=== PATIENT | male | born 1960 | race Caucasian/White ===

== ENCOUNTER 2025-08-19 23:31 | Inpatient (IN) | payer OTHER, SELFPAY ==
[2025-08-19 17:11] VITALS: BP 147/80
[2025-08-19 17:39] LABS: Hematocrit 47.5 % (39.0-52.0); Hemoglobin 16.0 g/dL (13.0-18.0); Mean Corp Hgb Conc. 33.7 g/dL (33.0-37.0); Mean Corpuscular Volume 91.2 fL (80.0-94.0); Nucleated Red Blood Cells % 0 % (-); Platelet Count 262 10^3/uL (130-400); Red Cell Dist. Width 12.9 % (11.5-14.5)
[2025-08-19 18:04] LABS: ALT (SGPT) 38 U/L (0-50); AST (SGOT) 22 U/L (17-59); Albumin 4.8 g/dl (3.5-5.0); Alkaline Phosphatase 97 U/L (38-126); Blood Urea Nitrogen 14 mg/dl (9-20); Calcium 9.6 mg/dl (8.4-10.2); Carbon Dioxide 26 mmol/L (22-30); Chloride 100 mmol/L (98-107); Glucose 130 mg/dl (70-99); Lipase 727 U/L (23-300); Potassium 4.2 mmol/L (3.5-5.1); Sodium 138 mmol/L (135-145); Total Protein 7.6 g/dl (6.3-8.2); eGFR > 60.00
[2025-08-19 19:24] VITALS: BMI 32.6
[2025-08-19 19:27] VITALS: BP 136/84
[2025-08-19] MEDS: NSS 500 IV (19:34)
[2025-08-19 20:00] VITALS: BP 142/73
[2025-08-19 21:00] VITALS: BP 121/79
[2025-08-19 22:00] VITALS: BP 129/78
--- NOTE | 2025-08-19 22:39 | ED.GENMED ---
History of Present Illness
General
Chief Complaint: Abdominal Pain
Source: patient and spouse
Time Seen by Provider: 08/19/25 19:02
History of Present Illness
History of Present Illness:
Note:
CHIEF COMPLAINT(S)
Lower abdominal pain
HISTORY OF PRESENT ILLNESS
The patient is a 64-year-old male who presents with a complaint of lower abdominal pain that began suddenly in the afternoon the previous day. The pain has become progressively worse, described as a 'soreness.' There is no radiation to the back
noted, although the patient has a history of three bulging discs on the same side of the back. The patient reports constipation, characterized by infrequent small bowel movements, and is concerned about being 'backed up.' There is a history of
diverticulitis on the left side in the past, which required surgical intervention removing eight inches of colon. The patient is currently on insulin and Ozempic for diabetes management, with insulin recently increased to 30 units at night. He
reports that the dosage increase has not notably improved his blood glucose levels. The patient also notes a stable weight at 230-231 pounds over the last few years and mentions being advised of potential benefits from switching to Mounjaro for
diabetes control, but expresses concerns about insurance coverage.
ADDITIONAL HISTORY OBTAINED FROM SOURCES OTHER THAN THE PATIENT
The patients friend, who is a doctor, advised seeking medical evaluation for the current symptoms.
The patient�s spouse reports that he does not drink water regularly and prefers iced tea; he also has poor dietary habits.
CHRONIC MEDICAL CONDITIONS SIGNIFICANTLY AFFECTING CARE
Diabetes Mellitus
History of diverticulitis
PHYSICAL EXAM
General: Alert, no acute distress.
Skin: Warm, dry.
Head: Normocephalic, atraumatic.
Neck: Supple, trachea midline.
Eye Ears, nose, mouth and throat: Oral mucosa moist.
Cardiovascular: Normal peripheral perfusion, no edema.
Respiratory: Respirations are non-labored. No respiratory distress, clear lung ponce without rales.
Gastrointestinal : No tenderness or distension, normal bowel sounds, no hernia palpated, no pulsatile masses.
Back: Normal range of motion, normal alignment.
Musculoskeletal: Normal range of motion, normal strength.
Neurological: Alert and oriented to person, place, time, and situation, non-focal motor exam.
Psychiatric: Cooperative, appropriate mood & affect.
PLAN
Obtain a CT scan of the abdomen to evaluate for appendicitis, colitis, or other intra-abdominal pathology.
Administer IV fluids (500 mL) to address dehydration and assist in diabetes management due to high blood sugar.
Advise dietary modifications including increasing water intake and reducing iced tea consumption.
DIFFERENTIAL DIAGNOSIS
The Differential Diagnosis includes, in no particular order and is not limited to:
- Appendicitis
- Diverticulitis
- Abdominal wall strain
- Renal calculi (kidney stones)
- Constipation secondary to medication or diet
- Musculoskeletal pain related to bulging discs
- Colitis
- Gastrointestinal obstruction
- Diabetic ketoacidosis
- Hernia
Disposition:
SUMMARY OF ENCOUNTER
The 64-year-old male presented with lower abdominal pain, accompanied by concerns of a bowel obstruction or related pathology. A CT scan revealed a mass involving the cecum, extending into the appendix and proximal ascending colon, measuring 4.5 cm,
with a dilated appendix and potential small contained perforation. Blood glucose was noted at 130 mg/dL. The patient has a history of diabetes mellitus and previous diverticulitis. A surgical consultation was obtained, and the management plan
included antibiotic treatment with intravenous piperacillin and tazobactam (Zosyn).
ASSESSMENT
The patient appears to have a colonic mass with potential for bowel perforation, warranting antibiotic management and surgical evaluation.
EMERGENCY TREATMENTS ADMINISTERED
The patient was administered intravenous piperacillin and tazobactam (Zosyn).
MANAGEMENT OF THE PATIENTS CARE WAS DISCUSSED WITH
The case was discussed with Dr. Collins from surgery, who concurred with the management plan. The case was also discussed with the hospitalist.
PLAN
Proceed with antibiotic management, continue monitoring, and prepare for potential surgical intervention.
INDEPENDENT REVIEW OF LABS AND INTERPRETATION OF TESTS
- My independent review of the CBC is normal.
- My independent review of the CMP shows normal results except for mildly elevated lipase at 727 U/L.
- My independent interpretation of the CT scan shows a mass involving the cecum, extending into the appendix and proximal ascending colon, measuring 4.5 cm, with a dilated appendix and possible contained perforation.
MEDICATION RECONCILIATION
- Piperacillin and tazobactam (Zosyn) was administered intravenously.
MEDICAL DECISION MAKING
- Number and Complexity of Problems Addressed: Chronic conditions affecting care include diabetes mellitus and history of diverticulitis. Differential diagnosis includes appendicitis, diverticulitis, renal calculi (kidney stones), constipation,
musculoskeletal pain, colitis, gastrointestinal obstruction, diabetic ketoacidosis, and hernia.
- Data:
Category 1:
- Clinical information obtained from an independent historian (the patient�s friend who is a doctor and the patients spouse).
- My independent interpretation of the CT scan shows cecal mass extending to appendix and proximal ascending colon.
Category 3:
- Case discussion with Dr. Collins (surgeon) and the hospitalist regarding management.
- Risk:
- Prescription medication management was initiated with IV antibiotics.
- Consideration of Admission/Observation: Escalation of care including admission/observation was considered given the complexity and risk of the patients presenting complaint, exam findings, and/or their underlying comorbidities. However,
ultimately, the patient is safe for outpatient management with close follow-up as the work-up was reassuring, not revealing any acute life/organ-threatening processes.
DIAGNOSIS
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
- Diabetes Mellitus Type 2, insulin-dependent (ICD-10: E11.9).
Phy Exam
Physical Exam
Physical Exam:
.
Course
Orders/Labs/Results
Orders:
Orders
08/19/25 17:14
Electrocardiogram (*1) Urgent
Reason for Study: Abdominal Pain
EKG- Treatment ONCE
08/19/25 17:29
Complete Blood Count/With Diff Urgent
Comprehensive Metabolic Panel Urgent
Lipase Urgent
08/19/25 19:23
CT Abd/Pel (IV only)-DH only Urgent
Comment:
Reason For Exam: RLQ abd pain
08/19/25 19:25
0.9% Sodium Chloride 500 ml [Nss] 500 ml IV BOLUS
08/19/25 22:30
Piperacillin/Tazo 3.375 Gram [Zosyn] 3.375 gram in 50 ml IV NOW
08/19/25 23:16
Admit/Transfer Patient As Directed
Co-Sign Provider:
Level of Care: Inpatient admission
Assign to:: Medical/Surgical
Physician / Group: Joshua
Diagnosis: Cecal Mass
Reason for Hospitalization: Surgical Consult
Expected length of stay greater than two midnights?: Yes
ELOS- Estimated Length of Stay in days: 3
I certify the patient meets the requirements for IP care: Yes
PRN Pain Medication Management As Directed
May give lesser potent ordered pain med per pt: Yes
preference::
Protocol:: Medication orders for pain may be administered in a
manner that supports deferring to patient preference
when the pt is:
- Requesting an ordered lesser potent pain medication.
Least to most potent pain medications are defined
as: acetaminophen < NSAID < tramadol < opioids
(morphine, oxycodone, hydromorphone).
- Requesting a lesser dose of the same medication IF
ORDERED.
- Requesting a less intrusive route of administration
if both routes are prescribed by the provider (PO <
IV).
08/19/25 23:22
Code Status As Directed
Resuscitation Status: Full Code
08/19/25 23:25
Insulin Glargine Lantus [Lantus] 15 units Subcutaneous Insulin Syringe [Syringe-Insulin] 0 unit SC ONCE
08/20/25 01:30
0.9% Sodium Chloride 1000 ml [Nss] 1,000 ml IV 80 mls/hr
Acetaminophen [Tylenol] 650 mg PO Q4HPRN PRN
Dextrose 50%-Water [Dextrose 50% Syringe] 12.5 grams IV [id number] PRN
Glucagon [GlucaGen] 1 mg IM PRN PRN
Morphine Sulfate 2 mg IV Q4HPRN PRN
Ondansetron Injectable [Zofran] 4 mg IV Q6HPRN PRN
08/20/25 01:30
SURGICAL CONSULT Routine
Consulting Provider: Tavo Chao
Was physician already notified: Yes
Activity As Directed
Activity Level: Out of Bed-Early Mobility
With Assistance
Bedside Glucose Monitoring As Directed
Frequency: AC&HS
Additional Instructions:: Change to q6h if pt on TPN, tube feeding or not eating
Bladder Scan As Directed
Follow Bladder Retention/Intermittent Cath Algorithm?: Yes
PRN if no void in __ hours: 6
Frequency: Per Retention Algorithm
If Bladder Scan Result >: 400
then:: Straight cath
I&O [Intake/ Output] As Directed
Frequency: q12h
Straight Cath As Directed
Frequency: Per Retention Algorithm
Additional Instructions: straight cath as needed per acute urinary retention algorithm for 24 hrs
Additional Instructions: for bladder scan greater than 400 mL
Vital Signs As Directed
Frequency: Per unit guidelines
DX Deep Vein Thrombosis Video Routine
08/20/25 Breakfast
NPO
Allow oral meds: Yes
Allow clear liquids: 4hrs prior to procedure
Comment: may have unrestricted clear liquid up to 4 hrs prior to scheduled procedure
Glycohemoglobin (HgbA1c) IN AM
08/20/25 07:30
Insulin Aspart Corrective Low [Novolog Flexpen-Low Resistance] See Protocol SC AC
08/20/25 08:00
Carvedilol [Coreg] 6.25 mg PO BID
Dapagliflozin [Farxiga] 10 mg PO DAILY
Ezetimibe [Zetia] 10 mg PO DAILY
Valsartan [Diovan] 160 mg PO DAILY
08/20/25 18:00
Enoxaparin Sodium [Lovenox] 40 mg SC QPM
08/20/25 22:00
Atorvastatin [Lipitor] 80 mg PO HS
insulin glargine [Lantus U-100 Insulin] 15 unit SC HS
Abnormal Lab Results
08/19/25
17:29
Absolute Monos (auto) 0.8 H 10^3/uL
(0.1-0.6)
Monocytes % 9.7 H %
(1.7-9.3)
Glucose 130 H mg/dl
(70-99)
Lipase 727 H U/L
(23-300)
08/19/25 17:29
08/19/25 17:29
Vital Signs
Initial and Last Documented VS:
Initial Vital Signs
Temp Pulse Resp BP Pulse Ox
98.1 F 79 16 147/80 100
08/19/25 17:11 08/19/25 17:11 08/19/25 17:11 08/19/25 17:11 08/19/25 17:11
Last Documented Vital Signs
Temp Pulse Resp BP Pulse Ox
98.1 F 73 23 136/84 94
08/19/25 17:11 08/19/25 19:45 08/19/25 19:45 08/19/25 19:27 08/19/25 22:40
*Pulse Oximetry
SaO2: 94
Oxygen Mode of Delivery: Room air
Patient hypoxic: no
*Critical Care Note
Total Time (30-74mins, 75-104mins- exclusive of procedures): Not Applicable
ED Attending Note
-
Portions of this chart may have been created with voice recognition software.� Occasional wrong word or��sound alike� substitutions may have occurred due to the inherent limitations of voice recognition software.
Discharge Plan
Departure
Patient Disposition: Admit
Date of Disposition: 08/19/25
Time of Disposition: 22:39
Admit to: Med/Surg
Presentation/result/management discussed w/ accepting MD/DO: Hospitalist
Discharge Problem:
Mass of cecum, appendiceal obstruction, possible perforated appendix
Interventions
Interventions:
*General Assessment Last Done: 08/19/25 19:24
*Neglect/Abuse Screening Last Done: 08/19/25 17:11
*ED COVID-19 Vaccine History Last Done: 08/19/25 19:24
*ED Influenza Vaccine History Last Done: 08/19/25 19:24
[facility] Fall Risk Assessment Tool Last Done: 08/19/25 19:24
*Risk Screen - Suicide (C-SSRS) Last Done: 08/20/25 00:24
PV-Nwegma-Udgqiqqkho Assessment Last Done: 08/19/25 19:28
--- NOTE | 2025-08-19 22:56 | HPS.HSE ---
Addendum entered and electronically signed by Jamir Lewis DO 08/20/25 00:11:
Patient seen and examined independently. Agree with findings and plan as set forth by Paulina Escobar PA-C.
Patient is a 64y M with PMH significant for ASCVD, HTN and DM-II who presents to ED complaining of RLQ off-and-on for about one month. No N/V, fevers / chills. No noted diarrhea, black or bloody stools. Patient has a prior history of
diverticulitis, s/p partial bowel resection. Has had colonoscopy in the past - though it has been a few years.
Ass:
Cecal / Appendiceal Mass
Possible Appendiceal Perforation
ASCVD
benign Hypertension
DM-II
Plan:
Admit for further evaluaytion and treatment.
NPO, IVFs, pain control, etc.
Continue Zosyn for now given possibility of perforation.
Surgery consulted for additional recommendations.
? colonoscopy v excisional biopsy / appendectomy for further evaluation.
Continue basal insulin at decreased dose. Follow glucose and cover with SSI.
Continue ASA / CV med regimen.
Original Note:
Family Physician
-
Family Physician: Sinai Das NP
Chief Complaint
-
Abdominal Pain
History of Present Illness
Patient is a 64 y/o male past medical history of diabetes, hypertension, and hyperlipidemia who presents with abdominal pain. Patient reports intermittent episodes of right lower quadrant abdominal over the past month. He reports last night pain
was more severe than previous and is more persistent than previous episodes. He denies any nausea and vomiting. He reports some trouble with constipation but denies any diarrhea. He denies any fevers, sweats or chills.
Medical History
Past Medical History
Past Medical History: Reports Other
Additional Past Medical History:
Coronary Artery Disease s/p Stent ~ 15 years ago
Diabetes Mellitus, Type II
Essential Hypertension
Hyperlipidemia
Past Surgical History: Reports Other
Additional Past Surgical History:
Colon Resection for diverticulitis
Ventral Hernia Repair
Social History
Tobacco: Non-smoker
Alcohol: Other (Very rare)
Family History
Family History: Not pertinent
Allergies / Home Medications
Allergies reflects when Allergies were last updated in [facility].
Home Medications with original date entered in [employer] [facility]
Allergy/Medication List:
Allergies
Allergy/AdvReac Type Severity Reaction Status Date / Time
No Known Allergies Allergy Unverified 08/19/25 23:26
Home Medications
aspirin 81 mg tablet 81 mg PO DAILY 08/19/25
atorvastatin 80 mg tablet (Lipitor) 80 mg PO HS 08/19/25
carvedilol 6.25 mg tablet 6.25 mg PO BID 08/19/25
empagliflozin 25 mg tablet (Jardiance) 25 mg PO DAILY 08/19/25
ezetimibe 10 mg tablet 10 mg PO DAILY 08/19/25
glimepiride 4 mg tablet 4 mg PO BID 08/19/25
insulin glargine 100 unit/mL subcutaneous solution (Lantus U-100 Insulin) 30 unit SC HS 08/19/25
metformin 500 mg tablet 500 mg PO BID 08/19/25
semaglutide 2 mg/dose (8 mg/3 mL) subcutaneous pen injector (Ozempic) 2 mg SC QWEEK 08/19/25
valsartan 160 mg-hydrochlorothiazide 12.5 mg tablet 1 tab PO DAILY 08/19/25
Review of Systems
-
A 12 point ROS was completed and negative except as noted: Yes
Constitutional: Denies Fever
Respiratory: Denies Cough or Trouble Breathing
Cardiac: Denies Chest Pain or Palpitations
Abdomen/GI: Reports See HPI
Physical Exam
Vital Signs
Vital Signs
Temp Pulse Resp BP Pulse Ox
98.1 F 73 23 136/84 94
08/19/25 17:11 08/19/25 19:45 08/19/25 19:45 08/19/25 19:27 08/19/25 22:40
Physical Exam
General: Comfortable and Conversant
HEENT: Anicteric and Moist mucous membranes
Respiratory: Clear and Non Labored Respirations
Cardiac: S1/S2 and Regular Rhythm
GI: Soft, Normal Bowel Sounds and Tender (RLQ)
Rectal: Deferred by Provider
Musculoskeletal: No Clubbing and No Cyanosis
Skin: Warm and Dry
Neuro: Awake, Alert, Oriented and Nonfocal/grossly intact
Psych: Calm
Laboratory Results
-
08/19/25 17:29
08/19/25 17:29
Laboratory Results
Total Bilirubin 1.2 mg/dl (0.2-1.3) 08/19/25 17:
AST 22 U/L (17-59) 08/19/25 17:29
ALT 38 U/L (0-50) 08/19/25 17:29
Alkaline Phosphatase 97 U/L (38-126) 08/19/25 17:29
Lipase 727 U/L (23-300) H 08/19/25 17:29
Abd/Pelvis CT Scan:
There appears to be a mass involving the cecum and extending into the appendiceal orifice and proximal appendix. This measures up to 4.5 cm. There is associated dilation of the appendix measuring up to 1.8 cm which may be secondary to obstruction.
There is a small outpouching along the mid appendix for which a small contained perforation is possible. Findings are concerning for malignancy and may represent an appendiceal mucinous neoplasm or possible adenocarcinoma. Recommend colonoscopy for
further evaluation.
Data Reviewed
-
CT Scan: Report Reviewed by me
Lab Data: Labs Reviewed by me
Impression/Plan
-
Cecal Mass with associated appendiceal obstruction and possible perforation
-Consult General Surgery
-NPO after midnight for possible OR tomorrow
Coronary Artery Disease s/p Stent ~ 15 years ago
-Continue aspirin
Diabetes Mellitus, Type II
-Hold Glimepiride and Metformin
-Half usual dose of Lantus while NPO
-Continue Jardiance
Essential Hypertension
-Continue carvedilol and valsartan
-Hold HCTZ
Hyperlipidemia
-Continue atorvastatin and ezetimibe
DVT proph: Lovenox
Code Status: Full Code
[2025-08-19 23:00] VITALS: BP 122/81
[2025-08-19 23:31] VITALS: BMI 32.6
[2025-08-19] MEDS: ZOSYN 50 IV (23:58)
[2025-08-20] VITALS (7 sets, daily range): BP systolic 120–146; BP diastolic 70–105; BMI 34.2
[2025-08-20] MEDS: LANTUS 0.15 UNITS SC (01:33)
[2025-08-20] MEDS: NSS 1000 IV ×2 (01:35→17:37)
[2025-08-20] MEDS: ZOSYN 50 IV ×4 (06:05→23:57)
[2025-08-20] MEDS: ASPIR LOW (ENTERIC COATED) 81 MG PO (08:23)
[2025-08-20] MEDS: COREG 6.25 MG PO ×2 (08:23→19:46)
[2025-08-20] MEDS: DIOVAN 160 MG PO (08:24)
[2025-08-20] MEDS: NOVOLOG FLEXPEN-LOW RESISTANCE SC ×2 (09:01→17:32)
[2025-08-20] MEDS: FARXIGA 10 MG PO (09:02)
[2025-08-20] MEDS: ZETIA 10 MG PO (09:02)
[2025-08-20 09:05] LABS: Glucose - Point of Care 106 mg/dl (70-99)
[2025-08-20 09:18] LABS: Glycohemoglobin (HgbA1c) 8.6 % (4.0-5.9)
--- NOTE | 2025-08-20 09:57 | CON.GI ---
Consultation
-
Date/Time Consultation Requested: 08/20/25 8:42am
Date/Time Consultation Performed: 08/20/25 9:57am
Requesting Provider: Tavo Chao
Performing Provider: Davian Cade
Reason for Consultation: Colon mass
Medical History
Chief Complaint / HPI
Chief Complaint: Colon mass
History of Present Illness:
64yo male presents with RLQ abd pain over last several weeks. BMs smaller. Denies rectal bleeding. Had pain earlier in the week that was more severe but subsided. Denies f/c, n/v. Had colonoscopy in 2004- diverticulosis and hemorrhoids. None
since then.
Past Medical History
Past Medical History: CAD, HTN and NIDDM
Past Surgical History: Bowel Resection (colon resection for diverticulitis) and Other (hernia repair)
Social History
Tobacco: Non-Smoker
Alcohol: Occasional
Family History
Family History: Cancer (Mother- CRC)
Allergies / Home Medications
Allergy/AdvReac Type Severity Reaction Status Date / Time
No Known Allergies Allergy Unverified 08/19/25 23:26
�Medication �Instructions �Recorded
aspirin 81 mg tablet 81 mg PO DAILY Blood Clot 08/19/25
Prevention/Tx
atorvastatin 80 mg tablet (Lipitor) 80 mg PO HS High Cholesterol 08/19/25
carvedilol 6.25 mg tablet 6.25 mg PO BID 08/19/25
empagliflozin 25 mg tablet 25 mg PO DAILY Diabetes 08/19/25
(Jardiance)
ezetimibe 10 mg tablet 10 mg PO DAILY High Cholesterol 08/19/25
glimepiride 4 mg tablet 4 mg PO BID Diabetes 08/19/25
insulin glargine 100 unit/mL 30 unit SC HS 08/19/25
subcutaneous solution (Lantus
U-100 Insulin)
metformin 500 mg tablet 500 mg PO BID Diabetes 08/19/25
semaglutide 2 mg/dose (8 mg/3 mL) 2 mg SC GILLIS Diabetes 08/19/25
subcutaneous pen injector (Ozempic)
valsartan 160 1 tab PO DAILY Heart 08/19/25
mg-hydrochlorothiazide 12.5 mg Disease/Condition
tablet
calcium polycarbophil 625 mg 1,250 mg PO DAILY Constipation 08/20/25
tablet (FiberCon)
cholecalciferol (vitamin D3) 25 25 mcg PO DAILY Supplement 08/20/25
mcg (1,000 unit) tablet (Vitamin
D3)
Review of Systems
-
All other systems: A 12 pt ROS was Negative except as stated above in HPI
Vital Signs
Temp Pulse Resp BP Pulse Ox
98.1 F 76 20 136/74 99
08/20/25 08:00 08/20/25 08:24 08/20/25 08:00 08/20/25 08:24 08/20/25 08:00
Physical Exam
Exam
General: Well Developed, Well Nourished and No Apparent Distress
HEENT: Normocephalic and Atraumatic
Respiratory: Non Labored Respirations
GI: Soft, Non Tender and Non Distended
Results
WBC 8.1 10^3/uL (4.8-10.8) 08/19/25 17:
Hgb 16.0 g/dL (13.0-18.0) 08/19/25 17:
Hct 47.5 % (39.0-52.0) 08/19/25 17:
MCV 91.2 fL (80.0-94.0) 08/19/25 17:
Plt Count 262 10^3/uL (130-400) 08/19/25 17:29
Absolute Neuts (auto) 5.3 10^3/uL (1.4-6.5) 08/19/25 17:
Sodium 138 mmol/L (135-145) 08/19/25 17:
Potassium 4.2 mmol/L (3.5-5.1) 08/19/25 17:
Chloride 100 mmol/L (98-107) 08/19/25:
Carbon Dioxide 26 mmol/L (22-30) 08/19/25:
BUN 14 mg/dl (9-20) 08/19/25:
Creatinine 0.9 mg/dL (0.7-1.3) 08/19/25
Calcium 9.6 mg/dl (8.4-10.2) 08/19/25
Total Bilirubin 1.2 mg/dl (0.2-1.3) 08/19/25
AST 22 U/L (17-59) 08/19/25
ALT 38 U/L (0-50) 08/19/25
Alkaline Phosphatase 97 U/L (38-126) 08/19/25
Lipase 727 U/L (23-300) H 08/19/25
Diagnostic Image Results:
CT abd/pelvis- mass involving cecum extending into appendiceal orifice and proximal appendix 4.5cm. Appendix dilated 1.8cm with small outpouching, contained perforation is possible.
Prior GI Procedures:
EGD:
Colonoscopy:
Assessment / Plan
-
Summary: 64yo male presents with several weeks RLQ pain and small BMs. Last colonoscopy in 2004- diverticulosis and hemorrhoids. CT shows 4.5cm cecal mass extending into appendix with small outpouching mid appendix, contained perforation possible.
Abd exam is benign, normal WBC.
Impression:
Cecal mass
RLQ pain
FH CRC
Recommendtaions:
Discussed with Surgery.
Will prep for colonoscopy for diagnosis of cecal cancer vs appendiceal mucinous tumor and to exclude synchronous lesions prior to surgery
Doubt perforated appendix given benign exam, normal WBC, no associated findings of inflammation around the appendix.
-
-
Thank you for consultation and allowing me to participate in the patient's care. Please call the heating and air conditioning mechanic GI physician during the after hours with any questions or concerns.
--- NOTE | 2025-08-20 10:53 | CON.GS ---
Consultation
-
Date/Time Consultation Performed: 08/20/2025 8:30 AM
Performing Provider: Jeremie
Reason for Consultation: Cecal mass
Medical History
-
Chief Complaint: Right lower quadrant abdominal pain
History of Present Illness:
Patient is a 64-year-old male who was in his usual baseline state of health until over the past 4 to 6 weeks or potentially longer he has been noticing a daily discomfort in the right lower quadrant. It is a mild ache that is worse at the end of
the day and with physical activity. Due to the persistence of his symptoms he presented for emergency department evaluation yesterday evening as he was on his feet all day at work and fairly uncomfortable by the end of the day.
No associated nausea, no vomiting. Appetite has been well and stable. He reports a history of chronic irregular bowel movements which tends to be constipated with occasional loose stool without any acute changes. No melena, no hematochezia.
States that his mother from colon cancer. His last colonoscopy is 15+ years ago. Reviewing medical records it appears as though this was in [address] Patel which showed diverticulosis and no polyps with 5-year surveillance
colonoscopy recommended.
Past abdominal surgical history notable for sigmoid colon resection 09/2005 for recurrent sigmoid diverticulitis and subsequent ventral hernia repair with mesh 09/06/2009. Patient also reports remote history of umbilical herniorrhaphy.
Past Medical History
Past Medical History: Other (CAD with remote history of coronary stent, type 2 diabetes, hypertension, hyperlipidemia)
Past Surgical History: Cardiac (Stent) and Other (Umbilical herniorrhaphy, ventral hernia repair, open sigmoidectomy)
Social History
Tobacco: Non-Smoker
Personal:
Living: With Family
Employment: Employed
Family History
Family History: Cancer (Mother passed from advanced colon cancer)
Allergies / Home Medications
Allergy/AdvReac Type Severity Reaction Status Date / Time
No Known Allergies Allergy Unverified 08/19/25 23:26
�Medication �Instructions �Recorded �Confirmed �Type
aspirin 81 mg tablet 81 mg PO DAILY Blood Clot 08/19/25 08/20/25 History
Prevention/Tx
atorvastatin 80 mg tablet (Lipitor) 80 mg PO HS High Cholesterol 08/19/25 08/20/25 History
carvedilol 6.25 mg tablet 6.25 mg PO BID 08/19/25 08/20/25 History
empagliflozin 25 mg tablet 25 mg PO DAILY Diabetes 08/19/25 08/20/25 History
(Jardiance)
ezetimibe 10 mg tablet 10 mg PO DAILY High Cholesterol 08/19/25 08/20/25 History
glimepiride 4 mg tablet 4 mg PO BID Diabetes 08/19/25 08/20/25 History
insulin glargine 100 unit/mL 30 unit SC HS 08/19/25 08/20/25 History
subcutaneous solution (Lantus
U-100 Insulin)
metformin 500 mg tablet 500 mg PO BID Diabetes 08/19/25 08/20/25 History
semaglutide 2 mg/dose (8 mg/3 mL) 2 mg SC GILLIS Diabetes 08/19/25 08/20/25 History
subcutaneous pen injector (Ozempic)
valsartan 160 1 tab PO DAILY Heart 08/19/25 08/20/25 History
mg-hydrochlorothiazide 12.5 mg Disease/Condition
tablet
calcium polycarbophil 625 mg 1,250 mg PO DAILY Constipation 08/20/25 08/20/25 History
tablet (FiberCon)
cholecalciferol (vitamin D3) 25 25 mcg PO DAILY Supplement 08/20/25 08/20/25 History
mcg (1,000 unit) tablet (Vitamin
D3)
Review of Systems
-
A 10 point review of systems was completed, and was negative except as per HPI.
Physical Exam
Vital Signs
Temp Pulse Resp BP Pulse Ox
98.1 F 76 20 136/74 99
08/20/25 08:00 08/20/25 08:24 08/20/25 08:00 08/20/25 08:24 08/20/25 08:00
08/19/25 08/20/25 08/21/25
06:59 06:59 06:59
Actual Weight 100 kg
Body Mass Index (BMI) 32.6
Lab Results
08/19/25 17:29
08/19/25 17:
WBC 8.1 10^3/uL (4.8-10.8) 08/19/25 17:
Hgb 16.0 g/dL (13.0-18.0) 08/19/25
Hct 47.5 % (39.0-52.0) 08/19/25
Plt Count 262 10^3/uL (130-400) 08/19/25
Abs Immat Gran (auto) 0.0 10^3/uL (0-0.05) 08/19/25
Neutrophils % 65.6 % (42.2-75.2) 08/19/25:
Physical Exam
General: Well Developed, Well Nourished, No Apparent Distress and Comfortable
HEENT: Normocephalic, Anicteric and Moist Mucous Membranes
Respiratory: Non Labored Respirations
Cardiac: Regular Rhythm
GI: Soft, Non Distended, Tender (Mild localizing tenderness to the right lower quadrant. No rebound, no rigidity, no guarding), Incisions (Midline laparotomy surgical scars well-healed.) and Obese
Skin: Warm
Neuro: AO x 3
Psych: Calm
Data Reviewed
-
CT Scan: Image Personally Visualized and interpreted, Report Reviewed by me, Discussed with Physician, Discussed with Patient and Discussed with Family
Labs: Labs Reviewed by me, Discussed with Physician, Discussed with Patient and Discussed with Family
Assessment / Plan
-
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 No clinical signs of perforation or impending perforation or active infectious process.
CT imaging personally reviewed and interpreted as well as radiologist report. Soft tissue mass affecting the cecum with appendiceal dilation, fluid-filled. No abscess, no phlegmon, no significant inflammatory changes. No obstruction of the
ileocecal valve or proximal dilation of the ileum.
Reviewing medical records it appears his last colonoscopy was 2004. Family history of colon cancer in his mother.
Plan:
Discussed with patient and his via conference phone call CT imaging findings concerning for a mass in the cecum causing chronic appendiceal obstruction but no perforation. We discussed workup to initially proceed with colonoscopy to rule out
any synchronous lesions as well as evaluate the area of concern within the cecum. We subsequently discussed the anticipated need for a formal right hemicolectomy for definitive surgical management. Timing pending completion of colonoscopy and
findings and subsequent workup but may expedite to occur during this hospitalization.
Tentatively planned after discussions with Dr. Cade/KATARZYNA for bowel prep today and colonoscopy tomorrow 08/21/2025. If patient agreeable to proceed could be added onto the OR schedule with myself for 08/24/2025 tentatively, assuming stability
and if patient prefers surgery could potentially be deferred until shortly after the holiday as well.
Will follow
--- NOTE | 2025-08-20 11:15 | W.PN.HOSP.TC ---
Today's Communication/Plan
-
see A/P
Assessment / Plan
Assessment / Plan
HPI: 64 y/o male past medical history of diabetes, hypertension, hyperlipidemia; p/w intermittent right lower quadrant abdominal pain over the past month. Due to increased severity and becoming more persistent in nature, he presented to the ED.
He denies any nausea and vomiting. He reports some trouble with constipation but denies any diarrhea. He denies any fevers, sweats or chills.
CT AP:
There appears to be a mass involving the cecum and extending into the appendiceal orifice and proximal appendix. This measures up to 4.5 cm. There is associated dilation of the appendix measuring up to 1.8 cm which may be secondary to obstruction.
There is a small outpouching along the mid appendix for which a small contained perforation is possible. Findings are concerning for malignancy and may represent an appendiceal mucinous neoplasm or possible adenocarcinoma. Recommend colonoscopy for
further evaluation.
Moderate fat-containing right inguinal hernia.
Cholelithiasis.
A/P:
# Cecal Mass with associated appendiceal obstruction, ruled out perforation per GS
General Surgery on board , recc first C scope with GI, followed by formal right hemicolectomy for definitive surgical management.
Plan for C scope tomorrow 08/21/2025, and tentative OR Sunday08/24/2025
Pt is medically optimized for surgery. Benefit of procedure outweighs risk.
# Coronary Artery Disease s/p Stent ~ 15 years ago
Continue aspirin
# Diabetes Mellitus, Type II
Hold Glimepiride and Metformin
Half usual dose of Lantus (at 15 units HS) while NPO
Continue Jardiance
# Essential Hypertension
Continue carvedilol and valsartan
Hold HCTZ
# Hyperlipidemia
Continue atorvastatin and ezetimibe
DVT proph: Lovenox
Code Status: Full Code
Anticipated Discharge: > 48 hours
Subjective/Interval History
-
Date of Service: August 20, 2025
Objective Data
-
Vital Signs:
Vital Signs
Temp Pulse Resp BP Pulse Ox
36.7 C 76 20 136/74 99
08/20/25 08:00 08/20/25 08:24 08/20/25 08:00 08/20/25 08:24 08/20/25 08:00
Review of Systems
-
History Source: Patient
All other systems: Reviewed and negative
Abdomen/GI: Reports Abdominal Pain (RLQ pain with deep palpation)
Physical Exam
-
General: Well Developed, Well Nourished, No Apparent Distress, Comfortable, Conversant and Obese; Negative Respiratory Distress
HEENT: Normocephalic, Atraumatic, Nose Appears Normal and Ears Appear Normal; Negative Oxygen
Respiratory: Clear to Auscultation and Non Labored Respirations; Negative Accessory Resp Muscle Use
Cardiac: Regular Rhythm and S1/S2
GI: Soft, Nondistended and Normal Bowel Sounds
Skin: Warm and Dry
Neuro: Awake, Alert, Oriented and AO x 3
Psych: Calm and Intact Judgement/Insight
Data Reviewed
-
CT Scan: Report Reviewed by me
Labs: Labs Reviewed by me
--- NOTE | 2025-08-20 11:55 | EDCM ---
Reviewed chart and met with pt bedside in ED. Lives with his in ranch style home, [address].
Independent in ADLs, personal care and ambulation at baseline. NO assistive devices. Has glucometer.
PMH includes DM , diverticulitis and CAD.
Confirms prescription coverage.
No hx VN or SNF
PCP: [facility]
Pharmacy: [facility]
Anticipate discharge home, CM will continue to follow for all discharge planning needs.
[2025-08-20 13:53] LABS: Glucose - Point of Care 180 mg/dl (70-99)
[2025-08-20 14:01] LABS: CEA 1.52 ng/ml
[2025-08-20] MEDS: NOVOLOG FLEXPEN-LOW RESISTANCE 1 UNITS SC (14:12)
[2025-08-20 17:38] LABS: Glucose - Point of Care 134 mg/dl (70-99)
[2025-08-20] MEDS: NULYTELY SOLUTION 4 LITERS PO (17:44)
[2025-08-20] MEDS: LOVENOX 40 MG SC (18:28)
[2025-08-20 21:18] LABS: Glucose - Point of Care 83 mg/dl (70-99)
[2025-08-20] MEDS: LIPITOR 80 MG PO (21:39)
--- NOTE | 2025-08-20 21:45 | PTCARENOTE ---
2130 glucose 83, contacted [employer] [facility] regarding lantus order d/t pt being NPO except clear liquids. Order to hold lantus for tonight per [employer]
[2025-08-21] VITALS (8 sets, daily range): BP systolic 18–150; BP diastolic 68–87
[2025-08-21 00:13] LABS: Glucose - Point of Care 77 mg/dl (70-99)
[2025-08-21] MEDS: NSS 1000 IV (05:42)
[2025-08-21] MEDS: ZOSYN 50 IV (05:42)
[2025-08-21 06:14] LABS: Glucose - Point of Care 79 mg/dl (70-99)
[2025-08-21 07:39] LABS: Hematocrit 40.7 % (39.0-52.0); Hemoglobin 13.6 g/dL (13.0-18.0); Mean Corp Hgb Conc. 33.4 g/dL (33.0-37.0); Mean Corpuscular Volume 91.9 fL (80.0-94.0); Platelet Count 220 10^3/uL (130-400); Red Cell Dist. Width 12.9 % (11.5-14.5)
[2025-08-21] MEDS: ZETIA 10 MG PO (08:13)
[2025-08-21] MEDS: FARXIGA 10 MG PO (08:13)
[2025-08-21] MEDS: DIOVAN 160 MG PO (08:13)
[2025-08-21] MEDS: COREG 6.25 MG PO ×2 (08:13→21:42)
[2025-08-21] MEDS: ASPIR LOW (ENTERIC COATED) 81 MG PO (08:13)
[2025-08-21 08:25] LABS: Blood Urea Nitrogen 9 mg/dl (9-20); Calcium 8.4 mg/dl (8.4-10.2); Carbon Dioxide 24 mmol/L (22-30); Chloride 107 mmol/L (98-107); Estimated Creatinine Clearance 113 ml/min; Glucose 74 mg/dl (70-99); Potassium 4.0 mmol/L (3.5-5.1); Sodium 137 mmol/L (135-145); eGFR > 60.00
[2025-08-21 08:38] LABS: Glucose - Point of Care 93 mg/dl (70-99)
[2025-08-21 10:16] LABS: Glucose - Point of Care 80 mg/dl (70-99)
--- NOTE | 2025-08-21 10:40 | W.PN.HOSP.TC ---
Today's Communication/Plan
-
see AP
Assessment / Plan
Assessment / Plan
HPI: 64 y/o male past medical history of diabetes, hypertension, hyperlipidemia; p/w intermittent right lower quadrant abdominal pain over the past month. Due to increased severity and becoming more persistent in nature, he presented to the ED.
He denies any nausea and vomiting. He reports some trouble with constipation but denies any diarrhea. He denies any fevers, sweats or chills.
CT AP:
There appears to be a mass involving the cecum and extending into the appendiceal orifice and proximal appendix. This measures up to 4.5 cm. There is associated dilation of the appendix measuring up to 1.8 cm which may be secondary to obstruction.
There is a small outpouching along the mid appendix for which a small contained perforation is possible. Findings are concerning for malignancy and may represent an appendiceal mucinous neoplasm or possible adenocarcinoma. Recommend colonoscopy for
further evaluation.
Moderate fat-containing right inguinal hernia.
Cholelithiasis.
A/P:
# Cecal Mass with associated appendiceal obstruction, ruled out perforation per GS
s/p C scope 08/21, noted Large, villous, mucous-capped mass occupying the entire cecum, s/p biopsies. Also polyps throughout the colon, resected
Follow path report
GS on board, timing of definitive surgical management/ right hemicolectomy TBD
Cont clears for now
# Coronary Artery Disease s/p Stent ~ 15 years ago
Continue aspirin
# Diabetes Mellitus, Type II
Hold Glimepiride and Metformin
Cont decreased dose of Lantus (adjust to 5 units HS, [employer]ONSIBILITY 30 units HS)
Continue Jardiance
# Essential Hypertension
Continue carvedilol and valsartan with hold parameter
Hold HCTZ
# Hyperlipidemia
Continue atorvastatin and ezetimibe
DVT proph: Lovenox
Code Status: Full Code
DW GI
DW GS
DW at bedside
Anticipated Discharge: > 48 hours
Subjective/Interval History
-
Date of Service: August 21, 2025
Objective Data
-
Labs:
Laboratory Results
08/21/25
07:03
WBC 6.3
Hgb 13.6
Hct 40.7
Plt Count 220
Sodium 137
Potassium 4.0
Chloride 107
Carbon Dioxide 24
BUN 9
Creatinine 0.8
Glucose 74
Calcium 8.4
Vital Signs:
Vital Signs
Temp Pulse Resp BP Pulse Ox
36.6 C 65 20 130/83 96
08/21/25 10:25 08/21/25 10:25 08/21/25 10:25 08/21/25 10:25 08/21/25 10:25
I&O
08/20/25 08/21/25 08/22/25
06:59 06:59 06:59
Intake Total 2420 / 2420
Balance 2420 / 2420
Review of Systems
-
History Source: Patient
All other systems: Reviewed and negative
Abdomen/GI: Reports Abdominal Pain (mild RLQ pain with deep palpation)
Physical Exam
-
General: Well Developed, Well Nourished, No Apparent Distress, Comfortable, Conversant and Obese (BMI 34); Negative Respiratory Distress
HEENT: Normocephalic, Atraumatic, Nose Appears Normal and Ears Appear Normal; Negative Oxygen
Respiratory: Clear to Auscultation and Non Labored Respirations; Negative Accessory Resp Muscle Use
Cardiac: Regular Rhythm and S1/S2
GI: Soft, Nondistended and Normal Bowel Sounds
Skin: Warm and Dry
Neuro: Awake, Alert, Oriented and AO x 3
Psych: Calm and Intact Judgement/Insight
Data Reviewed
-
CT Scan: Report Reviewed by me and Discussed with Patient
Labs: Labs Reviewed by me
--- NOTE | 2025-08-21 11:43 | W.PN.GS2 ---
Addendum entered and electronically signed by Tavo Chao MD 08/21/25 16:31:
Patient seen and examined with surgical [employer]. Agree with documented progress note with additions noted here. This is a delayed entry patient was seen and evaluated earlier today.
at bedside. Patient comfortably sitting in chair at bedside after returning from colonoscopy. No significant abdominal pain.
We reviewed colonoscopy results identifying a large frond villous nonobstructing mass in the cecum obscuring the appendiceal orifice.
Discussed indications for definitive surgical resection.
We reviewed the anticipated operative procedure of a laparoscopic assisted right hemicolectomy and typical postoperative recovery/care.
Patient would like to proceed with definitive resection at his index hospitalization rather than discharge with outpatient follow-up.
Staging CT chest ordered -reviewed negative for any suspicious pulmonary lesions
CEA normal
Maintain liquid diet through the weekend and he has been added onto the OR schedule for 08/24/2025
Will follow
Original Note:
Today's Communication / Plan
-
OR sunday
Assessment / Plan
-
64 yo male with h/o sigmoid colon resection 09/2005 for recurrent sigmoid diverticulitis and subsequent ventral hernia repair with mesh 09/06/2009 presenting with RLQ discomfort over the past month with cecal mass with appendiceal dilation found on CT.
Colonoscopy today with a frond-like/villous non-obstructing large, mucous-capped mass was in the cecum, appendiceal orifice unable to be visualized d/t mass location. Biopsies sent and pending but malignancy is suspected. No evidence of local spread
on CT. CEA 1.52 (wnl).
Surgical options discussed with the patient and his spouse today; will plan for right hemicolectomy on Sunday
Plan:
OK for full liquid diet, will not advance beyond this to avoid patient needing a second bowel prep. Clears Sunday and NPO after MN Sunday.
No further ABX needed
Will check CT chest for staging
D/W primary hospitalist on nursing unit
Subjective Data
-
Date of Service: August 21, 2025
Pt seen and examined at bedside with Dr. Chao. Denies n/v. Denies pain. Pt's spouse at bedside.
Objective Data
-
Intake and Output
08/20/25 08/21/25 08/22/25
06:59 06:59 06:59
Intake Total 2420 / 2420
Balance 2420 / 2420
Intake:
Oral fluids 1680 / 1680
IV fluids (Total) 640 / 640
IV piggybacks 100 / 100
Other:
Number of approximated MODERATE 6
amounts of urine
Vital Signs
Temp Pulse Resp BP Pulse Ox
97.9 F 65 20 130/83 96
08/21/25 10:25 08/21/25 10:25 08/21/25 10:25 08/21/25 10:25 08/21/25 10:25
Lab Results
08/21/25 07:03
08/21/25 07:03
Calcium 8.4 mg/dl (8.4-10.2) 08/21/25 07:03
Total Bilirubin 1.2 mg/dl (0.2-1.3) 08/19/25 17:29
AST 22 U/L (17-59) 08/19/25 17:29
ALT 38 U/L (0-50) 08/19/25 17:29
Alkaline Phosphatase 97 U/L (38-126) 08/19/25 17:29
Total Protein 7.6 g/dl (6.3-8.2) 08/19/25 17:29
Albumin 4.8 g/dl (3.5-5.0) 08/19/25 17:29
Physical Exam
-
NAD
ABD soft, nt, nd
[2025-08-21 12:46] LABS: Glucose - Point of Care 190 mg/dl (70-99)
[2025-08-21] MEDS: NOVOLOG FLEXPEN-LOW RESISTANCE 1 UNITS SC (12:52)
[2025-08-21] MEDS: NSS IV (15:48)
[2025-08-21 17:31] LABS: Glucose - Point of Care 110 mg/dl (70-99)
[2025-08-21] MEDS: NOVOLOG FLEXPEN-LOW RESISTANCE SC (17:41)
[2025-08-21] MEDS: LOVENOX 40 MG SC (18:38)
[2025-08-21 21:33] LABS: Glucose - Point of Care 109 mg/dl (70-99)
[2025-08-21] MEDS: LANTUS 0.05 UNITS SC (21:37)
[2025-08-21] MEDS: LIPITOR 80 MG PO (21:38)
[2025-08-22] MEDS: NSS 1000 IV (01:24)
[2025-08-22] MEDS: ZETIA 10 MG PO (07:40)
[2025-08-22] MEDS: COREG 6.25 MG PO ×2 (07:40→21:23)
[2025-08-22] MEDS: DIOVAN 160 MG PO (07:40)
[2025-08-22] MEDS: ASPIR LOW (ENTERIC COATED) 81 MG PO (07:40)
--- NOTE | 2025-08-22 07:57 | W.PN.HOSP.TC ---
Today's Communication/Plan
-
Stable
See plan
Assessment / Plan
Assessment / Plan
Physical Exam
General: Well Developed, Well Nourished, No Apparent Distress, Comfortable, Conversant and Obese (BMI 34)
HEENT: Normocephalic, Atraumatic
Respiratory: Clear to Auscultation Bilaterally
Cardiac: Regular Rhythm and S1/S2
GI: Soft, Nondistended and Normal Bowel Sounds
Skin: Warm and Dry
Neuro: Awake, Alert, Oriented and AO x 3
Psych: Calm and Intact Judgement/Insight
Assessment/Plan
HPI: 64 y/o male past medical history of diabetes, hypertension, hyperlipidemia; p/w intermittent right lower quadrant abdominal pain over the past month. Due to increased severity and becoming more persistent in nature, he presented to the ED.
He denies any nausea and vomiting. He reports some trouble with constipation but denies any diarrhea. He denies any fevers, sweats or chills.
CT AP:
There appears to be a mass involving the cecum and extending into the appendiceal orifice and proximal appendix. This measures up to 4.5 cm. There is associated dilation of the appendix measuring up to 1.8 cm which may be secondary to obstruction.
There is a small outpouching along the mid appendix for which a small contained perforation is possible. Findings are concerning for malignancy and may represent an appendiceal mucinous neoplasm or possible adenocarcinoma. Recommend colonoscopy for
further evaluation.
Moderate fat-containing right inguinal hernia.
Cholelithiasis.
# Cecal Mass with associated appendiceal obstruction, ruled out perforation per GS
s/p C scope 08/21, noted Large, villous, mucous-capped mass occupying the entire cecum, s/p biopsies. Also polyps throughout the colon, resected
Follow path report
GS on board, timing of definitive surgical management/ right hemicolectomy TBD
Cont Full Liquids for now, but Clear Liquids diet on 08/23/25, and NPO after midnight for surgery on 08/24/25
�
# Coronary Artery Disease s/p Stent ~ 15 years ago
Continue aspirin
# Diabetes Mellitus, Type II
Hold Glimepiride and Metformin
Cont decreased dose of Lantus -- adjusted to Lantus 5 units HS ([employer], patient was on Lantus 30 units HS)
Continue Jardiance
# Essential Hypertension
Continue carvedilol and valsartan with hold parameter
Hold HCTZ
# Hyperlipidemia
Continue atorvastatin and ezetimibe
DVT proph: Lovenox
Code Status: Full Code
Anticipated Discharge: > 48 hours
Subjective/Interval History
-
Date of Service: August 22, 2025
Patient was seen and examined. He denied any new symptoms or complaints.
Objective Data
-
Labs:
Laboratory Results
08/22/25
06:39
Sodium Pending
Potassium Pending
Chloride Pending
Carbon Dioxide Pending
BUN Pending
Creatinine Pending
Glucose Pending
Calcium Pending
Vital Signs:
Vital Signs
Temp Pulse Resp BP Pulse Ox
98.0 F 62 16 136/68 95
08/21/25 23:00 08/21/25 23:00 08/21/25 23:00 08/21/25 23:00 08/21/25 23:00
I&O
08/21/25 08/22/25 08/23/25
06:59 06:59 06:59
Intake Total 2420 / 2420 840 / 840
Balance 2420 / 2420 840 / 840
[2025-08-22 08:20] LABS: Glucose - Point of Care 98 mg/dl (70-99)
[2025-08-22] MEDS: NOVOLOG FLEXPEN-LOW RESISTANCE SC ×3 (08:32→16:57)
[2025-08-22 08:37] VITALS: BP 133/72
--- NOTE | 2025-08-22 09:21 | W.PN.GS2 ---
Today's Communication / Plan
-
OR sunday
Assessment / Plan
-
64 yo male with h/o sigmoid colon resection 09/2005 for recurrent sigmoid diverticulitis and subsequent ventral hernia repair with mesh 09/06/2009 presenting with RLQ discomfort over the past month with cecal mass with appendiceal dilation found on CT.
Colonoscopy 08/21 with a frond-like/villous non-obstructing large, mucous-capped mass was in the cecum, appendiceal orifice unable to be visualized d/t mass location. Biopsies sent and pending but malignancy is suspected. No evidence of local spread
on C abd/pelvis/chest. CEA 1.52 (wnl).
AFVSS
Plan:
OK for full liquid diet, will not advance beyond this to avoid patient needing a second bowel prep. Clears Sunday and NPO after MN Sunday.
OR sunday for right hemicolectomy
Preop labs in AM
c/w VTE ppx with lovenox
Subjective Data
-
Date of Service: August 22, 2025
Pt seen and examined at bedside. Denies pain. tolerating liquids. No n/v.
Objective Data
-
Intake and Output
08/21/25 08/22/25 08/23/25
06:59 06:59 06:59
Intake Total 2420 / 2420 840 / 840
Balance 2420 / 2420 840 / 840
Intake:
Oral fluids 1680 / 1680 840 / 840
IV fluids (Total) 640 / 640
IV piggybacks 100 / 100
Other:
Number of approximated MODERATE 6 5
amounts of urine
Vital Signs
Temp Pulse Resp BP Pulse Ox
98.3 F 65 20 133/72 95
08/22/25 08:37 08/22/25 08:37 08/22/25 08:37 08/22/25 08:37 08/22/25 08:37
Lab Results
08/21/25 07:03
Calcium 8.4 mg/dl (8.4-10.2) 08/21/25 07:03
Total Bilirubin 1.2 mg/dl (0.2-1.3) 08/19/25 17:29
AST 22 U/L (17-59) 08/19/25 17:
ALT 38 U/L (0-50) 08/19/25 17:29
Alkaline Phosphatase 97 U/L (38-126) 08/19/25 17:29
Total Protein 7.6 g/dl (6.3-8.2) 08/19/25 17:29
Albumin 4.8 g/dl (3.5-5.0) 08/19/25 17:29
Physical Exam
-
NAD
Mild tenderness to RLQ, ND
[2025-08-22 10:11] LABS: Blood Urea Nitrogen 7 mg/dl (9-20); Calcium 8.7 mg/dl (8.4-10.2); Carbon Dioxide 24 mmol/L (22-30); Chloride 107 mmol/L (98-107); Estimated Creatinine Clearance 111 ml/min; Glucose 88 mg/dl (70-99); Potassium 4.2 mmol/L (3.5-5.1); Sodium 139 mmol/L (135-145); eGFR > 60.00
[2025-08-22 12:43] LABS: Glucose - Point of Care 129 mg/dl (70-99)
[2025-08-22 16:47] VITALS: BP 146/81
[2025-08-22 16:56] LABS: Glucose - Point of Care 115 mg/dl (70-99)
--- NOTE | 2025-08-22 17:04 | CM ---
Patient chart reviewed
OR sunday for right hemicolectomy
PLAN: OR Sunday, CM to follow for discharge planning needs post-op
[2025-08-22] MEDS: LOVENOX 40 MG SC (18:34)
[2025-08-22 21:02] LABS: Glucose - Point of Care 179 mg/dl (70-99)
[2025-08-22] MEDS: LIPITOR 80 MG PO (21:22)
[2025-08-22] MEDS: LANTUS 0.05 UNITS SC (21:23)
[2025-08-22 23:00] VITALS: BP 129/76
[2025-08-23 06:56] LABS: INR 1.04; PT 13.7 Sec (11.4-14.6)
[2025-08-23 07:00] VITALS: BP 142/74
[2025-08-23 07:00] LABS: Hematocrit 42.7 % (39.0-52.0); Hemoglobin 14.1 g/dL (13.0-18.0); Mean Corp Hgb Conc. 33.0 g/dL (33.0-37.0); Mean Corpuscular Volume 89.5 fL (80.0-94.0); Platelet Count 241 10^3/uL (130-400); Red Cell Dist. Width 12.8 % (11.5-14.5)
[2025-08-23 07:14] LABS: APTT 32.6 Sec (23.4-35.0)
[2025-08-23 07:39] LABS: Blood Urea Nitrogen 7 mg/dl (9-20); Calcium 8.9 mg/dl (8.4-10.2); Carbon Dioxide 25 mmol/L (22-30); Chloride 107 mmol/L (98-107); Estimated Creatinine Clearance 111 ml/min; Glucose 132 mg/dl (70-99); Potassium 4.4 mmol/L (3.5-5.1); Sodium 138 mmol/L (135-145); eGFR > 60.00
--- NOTE | 2025-08-23 07:58 | W.PN.HOSP.TC ---
Today's Communication/Plan
-
See plan
Assessment / Plan
Assessment / Plan
Physical Exam
General: Well Developed, Well Nourished, No Apparent Distress, Comfortable, Conversant and Obese (BMI 34)
HEENT: Normocephalic, Atraumatic
Respiratory: Clear to Auscultation Bilaterally
Cardiac: Regular Rhythm and S1/S2
GI: Soft, Nondistended and Normal Bowel Sounds
Skin: Warm and Dry
Neuro: Awake, Alert, Oriented and AO x 3
Psych: Calm and Intact Judgement/Insight
Assessment/Plan
HPI: 64 y/o male past medical history of diabetes, hypertension, hyperlipidemia; p/w intermittent right lower quadrant abdominal pain over the past month. Due to increased severity and becoming more persistent in nature, he presented to the ED.
He denies any nausea and vomiting. He reports some trouble with constipation but denies any diarrhea. He denies any fevers, sweats or chills.
CT AP:
There appears to be a mass involving the cecum and extending into the appendiceal orifice and proximal appendix. This measures up to 4.5 cm. There is associated dilation of the appendix measuring up to 1.8 cm which may be secondary to obstruction.
There is a small outpouching along the mid appendix for which a small contained perforation is possible. Findings are concerning for malignancy and may represent an appendiceal mucinous neoplasm or possible adenocarcinoma. Recommend colonoscopy for
further evaluation.
Moderate fat-containing right inguinal hernia.
Cholelithiasis.
# Cecal Mass with associated appendiceal obstruction, ruled out perforation per GS
Fortunately, CT imaging reassuring without any evidence of lymphadenopathy or other concerning lesions along with a normal CEA.
s/p C scope 08/21, noted Large, villous, mucous-capped mass occupying the entire cecum, s/p biopsies. Also polyps throughout the colon, resected
Follow path report
GS on board, timing of definitive surgical management/ right hemicolectomy TBD
Clear Liquids diet on 08/23/25, and NPO after midnight for surgery on 08/24/25
�
# Coronary Artery Disease s/p Stent ~ 15 years ago
Continue aspirin
# Diabetes Mellitus, Type II
Hold Glimepiride and Metformin
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
Continue Jardiance
# Essential Hypertension
Continue carvedilol and valsartan with hold parameter
Hold HCTZ
# Hyperlipidemia
Continue atorvastatin and ezetimibe
DVT proph: Lovenox
Code Status: Full Code
Anticipated Discharge: > 48 hours
Subjective/Interval History
-
Date of Service: August 23, 2025
Patient was seen and examined. He denied any new symptoms or complaints.
Objective Data
-
Labs:
Laboratory Results
08/23/25
06:11
WBC 7.2
Hgb 14.1
Hct 42.7
Plt Count 241
PT 13.7
INR 1.04
APTT 32.6
Sodium 138
Potassium 4.4
Chloride 107
Carbon Dioxide 25
BUN 7 L
Creatinine 0.8
Glucose 132 H
Calcium 8.9
Vital Signs:
Vital Signs
Temp Pulse Resp BP Pulse Ox
98.1 F 72 16 129/76 94
08/22/25 23:00 08/22/25 23:00 08/22/25 23:00 08/22/25 23:00 08/22/25 23:00
I&O
08/22/25 08/23/25 08/24/25
06:59 06:59 06:59
Intake Total 840 / 840 1080 / 1080 240 / 240
Balance 840 / 840 1080 / 1080 240 / 240
--- NOTE | 2025-08-23 08:32 | W.PN.GS2 ---
Addendum entered and electronically signed by Tavo Chao MD 08/23/25 09:26:
Patient seen and examined with surgical SHIP OFFICER. Agree with documented progress note with additions noted here.
Tolerating full liquid diet. No worsening or new abdominal pain.
AFVSS
ABD: Soft, nondistended, very minimal tenderness only in the right lower quadrant. No rebound rigidity or guarding. Palpable fullness in the right lower quadrant.
A/P: 65-year-old male with large villous frond-like cecal mass and secondary appendiceal obstruction.
Patient is on the OR schedule for a laparoscopic assisted right hemicolectomy for definitive management 08/24/2025 with myself. Anticipated operative procedure was reviewed in detail including the surgical technique, potential operative
findings and the management, alternative treatment options, benefits and risks such as but not limited to bleeding, infectious and wound related complications, iatrogenic injury to surrounding viscera, anastomotic complication such as leak or
stricture. We discussed the typical postoperative recovery pending operative findings as well as postsurgical hospitalization care. Any of the patient's concerns or questions were fully addressed and informed consent was obtained.
Liquid diet today
N.p.o. tomorrow 4 hours prior to procedure -anticipating mid afternoon OR start
Invanz 1 g IV on-call to the OR
Preoperative laboratory testing and type and screen obtained no additional preop testing required
Original Note:
Today's Communication / Plan
-
OR in am
Assessment / Plan
-
64 yo male with h/o sigmoid colon resection 09/2005 for recurrent sigmoid diverticulitis and subsequent ventral hernia repair with mesh 09/06/2009 presenting with RLQ discomfort over the past month with cecal mass with appendiceal dilation found on CT.
-Colonoscopy 08/21 with a frond-like/villous non-obstructing large, mucous-capped mass was in the cecum, appendiceal orifice unable to be visualized d/t mass location. Biopsies sent and pending with malignancy is suspected.
-No evidence of local spread on CT abd/pelvis/chest. CEA 1.52 (wnl).
AFVSS
Labs stable
Plan:
Clear liquids today and NPO after MN
OR tomorrow for lap right hemicolectomy
c/w VTE ppx with lovenox
Subjective Data
-
Date of Service: August 23, 2025
Pt seen and examined at bedside with Dr. Chao. Denies n/v. Tolerating liquids. Denies pain.
Objective Data
-
Intake and Output
08/22/25 08/23/25 08/24/25
06:59 06:59 06:59
Intake Total 840 / 840 1080 / 1080 240 / 240
Balance 840 / 840 1080 / 1080 240 / 240
Intake:
Oral fluids 840 / 840 1080 / 1080 240 / 240
Other:
How many times incontinent 2
MODERATE amount urine
Number of approximated MODERATE 5 3
amounts of urine
Vital Signs
Temp Pulse Resp BP Pulse Ox
98.1 F 72 16 129/76 94
08/22/25 23:00 08/22/25 23:00 08/22/25 23:00 08/22/25 23:00 08/22/25 23:00
Lab Results
08/23/25 06:11
08/23/25 06:11
Calcium 8.9 mg/dl (8.4-10.2) 08/23/25 06:11
Total Bilirubin 1.2 mg/dl (0.2-1.3) 08/19/25 17:29
AST 22 U/L (17-59) 08/19/25 17:29
ALT 38 U/L (0-50) 08/19/25 17:29
Alkaline Phosphatase 97 U/L (38-126) 08/19/25 17:29
Total Protein 7.6 g/dl (6.3-8.2) 08/19/25 17:29
Albumin 4.8 g/dl (3.5-5.0) 08/19/25 17:29
Physical Exam
-
NAD
ABD soft, nt, nd
Patient has a preciado catheter: No
Patient has a central line: No
[2025-08-23] MEDS: DIOVAN 160 MG PO (08:55)
[2025-08-23] MEDS: ZETIA 10 MG PO (08:55)
[2025-08-23] MEDS: ASPIR LOW (ENTERIC COATED) 81 MG PO (08:55)
[2025-08-23] MEDS: COREG 6.25 MG PO ×2 (08:55→20:45)
[2025-08-23 09:09] LABS: Glucose - Point of Care 139 mg/dl (70-99)
[2025-08-23] MEDS: NOVOLOG FLEXPEN-LOW RESISTANCE SC ×3 (09:14→18:11)
--- NOTE | 2025-08-23 09:32 | W.PN.UPDATE ---
Update Note
Progress Note Update
Brief GI Note:
Path still pending from colonoscopy. Reviewed findings again with him this a.m at bedside. He has been scheduled for a right hemicolectomy tomorrow, 08/24/2025, given his cecal mass and CT imaging concerning for appendiceal obstruction. Did
discuss this may be benign as this did appear to be a very large, polypoid, mucous capped front-like lesion suggestive of a large tubulovillous adenoma. The biopsies were also soft. However, given the size of the lesion discussed this could still
harbor potential malignancy ([id number] biopsies obtained). Fortunately, CT imaging reassuring without any evidence of lymphadenopathy or other concerning lesions along with a normal CEA. Regardless, discussed that this lesion would not be
amenable to an EMR even if biopsies were in fact to be benign especially given the involvement along the AO with appendical obstruction (c/f contained perforation). Agree with proceeding with surgery and will continue to peripherally follow once
his pathology results have been resulted. Will discuss with pathology tomorrow if no path results by tomorrow afternoon as previously sent for billy. Rest of ongoing care as per primary team and general surgery.
GI will continue to follow.
[2025-08-23 11:00] VITALS: BP 144/84
[2025-08-23 13:18] LABS: Glucose - Point of Care 142 mg/dl (70-99)
[2025-08-23 15:00] VITALS: BP 160/85
[2025-08-23 17:45] LABS: Glucose - Point of Care 104 mg/dl (70-99)
[2025-08-23] MEDS: LOVENOX 40 MG SC (18:26)
[2025-08-23] MEDS: LIPITOR 80 MG PO (21:13)
[2025-08-23 21:30] LABS: Glucose - Point of Care 162 mg/dl (70-99)
[2025-08-23] MEDS: LANTUS 0.05 UNITS SC (21:30)
[2025-08-23 23:00] VITALS: BP 128/65
[2025-08-24] VITALS (8 sets, daily range): BP systolic 120–158; BP diastolic 74–86
[2025-08-24 05:44] LABS: Hematocrit 40.9 % (39.0-52.0); Hemoglobin 14.0 g/dL (13.0-18.0); Mean Corp Hgb Conc. 34.2 g/dL (33.0-37.0); Mean Corpuscular Volume 89.1 fL (80.0-94.0); Platelet Count 230 10^3/uL (130-400); Red Cell Dist. Width 12.8 % (11.5-14.5)
[2025-08-24 06:14] LABS: Blood Urea Nitrogen 6 mg/dl (9-20); Calcium 9.0 mg/dl (8.4-10.2); Carbon Dioxide 26 mmol/L (22-30); Chloride 106 mmol/L (98-107); Estimated Creatinine Clearance 111 ml/min; Glucose 121 mg/dl (70-99); Potassium 4.3 mmol/L (3.5-5.1); Sodium 138 mmol/L (135-145); eGFR > 60.00
[2025-08-24] MEDS: COREG 6.25 MG PO (07:47)
[2025-08-24] MEDS: DIOVAN 160 MG PO (07:47)
[2025-08-24] MEDS: ASPIR LOW (ENTERIC COATED) 81 MG PO (07:47)
[2025-08-24] MEDS: ZETIA 10 MG PO (07:48)
[2025-08-24] MEDS: NOVOLOG FLEXPEN-LOW RESISTANCE SC ×3 (08:04→17:17)
[2025-08-24 08:05] LABS: Glucose - Point of Care 130 mg/dl (70-99)
--- NOTE | 2025-08-24 11:55 | W.PN.HOSP.TC ---
Today's Communication/Plan
-
see A/P
Assessment / Plan
Assessment / Plan
HPI: 64 y/o male past medical history of diabetes, hypertension, hyperlipidemia; p/w intermittent right lower quadrant abdominal pain over the past month. Due to increased severity and becoming more persistent in nature, he presented to the ED.
He denies any nausea and vomiting. He reports some trouble with constipation but denies any diarrhea. He denies any fevers, sweats or chills.
CT AP:
There appears to be a mass involving the cecum and extending into the appendiceal orifice and proximal appendix. This measures up to 4.5 cm. There is associated dilation of the appendix measuring up to 1.8 cm which may be secondary to obstruction.
There is a small outpouching along the mid appendix for which a small contained perforation is possible. Findings are concerning for malignancy and may represent an appendiceal mucinous neoplasm or possible adenocarcinoma. Recommend colonoscopy for
further evaluation.
Moderate fat-containing right inguinal hernia.
Cholelithiasis.
A/P:
# Cecal Mass with associated appendiceal obstruction, ruled out perforation per GS
Fortunately, CT imaging reassuring without any evidence of lymphadenopathy or other concerning lesions along with a normal CEA.
s/p C scope 08/21, noted Large, villous, mucous-capped mass occupying the entire cecum, s/p biopsies. Also polyps throughout the colon, resected
Follow path report
GS on board, plan for right hemicolectomy 08/24
Consider Onc CS after OR
# Coronary Artery Disease s/p Stent ~ 15 years ago
Continue aspirin
# Diabetes Mellitus, Type II
Hold Glimepiride, Metformin, Jardiance
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
# Essential Hypertension
Continue carvedilol and valsartan with hold parameter
Hold HCTZ
# Hyperlipidemia
Continue atorvastatin and ezetimibe
DVT proph: Lovenox
Code Status: Full Code
Anticipated Discharge: > 48 hours
Subjective/Interval History
-
Date of Service: August 24, 2025
Objective Data
-
Labs:
Laboratory Results
08/24/25
05:16
WBC 6.9
Hgb 14.0
Hct 40.9
Plt Count 230
Sodium 138
Potassium 4.3
Chloride 106
Carbon Dioxide 26
BUN 6 L
Creatinine 0.8
Glucose 121 H
Calcium 9.0
Vital Signs:
Vital Signs
Temp Pulse Resp BP Pulse Ox
36.9 C 72 17 120/74 96
08/24/25 07:36 08/24/25 07:36 08/24/25 07:36 08/24/25 07:36 08/24/25 07:36
I&O
08/23/25 08/24/25 08/25/25
06:59 06:59 06:59
Intake Total 1080 / 1080 240 / 240
Balance 1080 / 1080 240 / 240
Review of Systems
-
History Source: Patient
All other systems: Reviewed and negative
Abdomen/GI: Reports Abdominal Pain (mild RLQ pain with deep palpation)
Physical Exam
-
General: Well Developed, Well Nourished, No Apparent Distress, Comfortable, Conversant and Obese (BMI 34); Negative Respiratory Distress
HEENT: Normocephalic, Atraumatic, Nose Appears Normal and Ears Appear Normal; Negative Oxygen
Respiratory: Clear to Auscultation and Non Labored Respirations; Negative Accessory Resp Muscle Use
Cardiac: Regular Rhythm and S1/S2
GI: Soft, Nondistended and Normal Bowel Sounds
Skin: Warm and Dry
Neuro: Awake, Alert, Oriented and AO x 3
Psych: Calm and Intact Judgement/Insight
Data Reviewed
-
CT Scan: Report Reviewed by me and Discussed with Patient
Labs: Labs Reviewed by me
[2025-08-24 11:58] LABS: Glucose - Point of Care 146 mg/dl (70-99)
--- NOTE | 2025-08-24 15:53 | W.SUR.PREOP ---
Pre-Operative Surgical Note
-
I have examined this patient prior to the performance of the scheduled procedure.
The patient's condition is unchanged from the time of the current History and
Physical and the patient is able to undergo the scheduled procedure.
[2025-08-24 17:14] LABS: Glucose - Point of Care 111 mg/dl (70-99)
--- NOTE | 2025-08-24 20:41 | W.IMMPOSTOP ---
Addendum entered and electronically signed by Tavo Chao MD 08/26/25 13:38:
#[id number]
Original Note:
Surgical Immed Post Op Note
-
Primary Surgeon: Tavo Chao MD
Assisting Surgeon: Sonam Pedroza NP
Pre-op Diagnosis: Cecal Mass
Post-op Diagnosis: Cecal Mass
Procedure Performed: Laparoscopic Right Hemicolectomy
Anesthesia Type: GETA + 0.25% Marcaine with epi
Specimen / Cultures: right hemicolectomy
Estimated Blood Loss: 40mL
Complications: none immediate
Operative Findings: palpable cecal mass obstructing the appendix. appendix dilated without perforation. no evidence of locally advanced disease. formal right hemicolectomy with proximal ligation of ileocolonic pedicle. right branch of middle
colic preserved. side to side ileum to hepatic flexure transverse colon anastomosis; david 80 stapler. 2 layer hand sewn closure of common enterotomy. omental adhesions to previously placed ventralex hernia patch lysed. hernia mesh not disturbed.
extracorporeal incision placed just above the hernia mesh. distal ileal adhesions to left pelvic side wall lysed for mobilization. no additional incidental findings.
updated patients with voicemail message post op - attempted to call and went straight to on numerous attempts.
[2025-08-24 20:59] LABS: Glucose - Point of Care 160 mg/dl (70-99)
[2025-08-24] MEDS: NSS 1000 IV (21:50)
[2025-08-24] MEDS: COREG PO (22:17)
[2025-08-24] MEDS: LOVENOX SC (22:17)
[2025-08-24] MEDS: OFIRMEV 100 IV (22:17)
--- NOTE | 2025-08-24 22:23 | PTCARENOTE ---
21:41 pt rec'vd from PACU, abd sx sites assessed with PACU nurse incisions clued and intact, pt sleepy but easily arousable to voice, denies pain, at the bedside, both oriented to unit.
[2025-08-24 23:02] LABS: Glucose - Point of Care 166 mg/dl (70-99)
[2025-08-24] MEDS: LOPRESSOR 5 MG IV (23:35)
[2025-08-25] VITALS (8 sets, daily range): BP systolic 119–149; BP diastolic 57–76; PULSE 67; O2SAT 94; BMI 34.2
[2025-08-25] MEDS: NSS 1000 IV ×3 (04:54→20:18)
[2025-08-25] MEDS: OFIRMEV 100 IV ×4 (04:55→21:43)
[2025-08-25] MEDS: LOPRESSOR 5 MG IV ×3 (06:05→18:01)
--- NOTE | 2025-08-25 06:22 | PTCARENOTE ---
pt had a small soft loose BM this morning , the smear on pad was observed burgundy blood, abd is soft/round/distended with hypoactive BS ,tender when palpated , pt denies pain only with movement OOB Dr Willams given SBAR
[2025-08-25 06:23] LABS: Hematocrit 37.3 % (39.0-52.0); Hemoglobin 12.3 g/dL (13.0-18.0); Mean Corp Hgb Conc. 33.0 g/dL (33.0-37.0); Mean Corpuscular Volume 90.3 fL (80.0-94.0); Platelet Count 228 10^3/uL (130-400); Red Cell Dist. Width 12.9 % (11.5-14.5)
[2025-08-25 06:44] LABS: Blood Urea Nitrogen 13 mg/dl (9-20); Calcium 8.1 mg/dl (8.4-10.2); Carbon Dioxide 24 mmol/L (22-30); Chloride 104 mmol/L (98-107); Estimated Creatinine Clearance 99 ml/min; Glucose 163 mg/dl (70-99); Magnesium 2.2 mg/dl (1.6-2.3); Potassium 4.9 mmol/L (3.5-5.1); Sodium 137 mmol/L (135-145); eGFR > 60.00
[2025-08-25] MEDS: NSS 250 IV (06:45)
--- NOTE | 2025-08-25 07:08 | W.PN.GS2 ---
Today's Communication / Plan
-
`
Assessment / Plan
-
Assessment: 65-year-old male POD #1 status post laparoscopic assisted right hemicolectomy/lysis of adhesions for management of a large cecal mass obstructing the appendix
AF -VSS with some hypertension
Early postop anastomotic bleed suspected
Plan: 500 mL liter normal saline bolus x 1
1 g TXA now and repeat in 2 hours
Repeat H&H at noon
Maintain n.p.o. including PO medications; okay for ice chips for comfort
Renew IV fluids
IV BP meds
No Toradol initially postop given anastomotic bleeding; pharmacologic VTE prophylaxis will be held as well today
Subjective Data
-
Date of Service: August 25, 2025
Patient seen and examined.
Generally felt well overnight until urge to have bowel movement earlier this a.m.
Initial passed old liquid brown stool which then became bloody/burgundy
Diaphoretic when up out of bed for bowel movement
Currently resting comfortably in bed. Reports modest incisional pain.
No nausea
Objective Data
-
Intake and Output
08/24/25 08/25/25 08/26/25
06:59 06:59 06:59
Intake Total 240 / 240 1510 / 1510
Output Total 125 / 125
Balance 240 / 240 1385 / 1385
Intake:
Oral fluids 240 / 240 0 / 0
IV fluids (Total) 1310 / 1310
normosol 50 / 50
IV piggybacks 200 / 200
Output:
Urine, Preciado 125 / 125
Other:
How many times incontinent 2
MODERATE amount urine
Number of approximated MODERATE 5 2
amounts of urine
Number of unmeasured liquid
stools
Rectum 3
Vital Signs
Temp Pulse Resp BP Pulse Ox
97.6 F 71 16 150/78 95
08/25/25 03:00 08/25/25 06:05 08/25/25 03:00 08/25/25 06:05 08/25/25 03:00
Lab Results
08/25/25 05:30
Calcium 8.1 mg/dl (8.4-10.2) L 08/25/25 05:30
Magnesium 2.2 mg/dl (1.6-2.3) 08/25/25 05:30
Total Bilirubin 1.2 mg/dl (0.2-1.3) 08/19/25 17:29
AST 22 U/L (17-59) 08/19/25 17:29
ALT 38 U/L (0-50) 08/19/25 17:29
Alkaline Phosphatase 97 U/L (38-126) 08/19/25 17:29
Total Protein 7.6 g/dl (6.3-8.2) 08/19/25 17:29
Albumin 4.8 g/dl (3.5-5.0) 08/19/25 17:29
Physical Exam
-
NAD AAO x 3
ABD: Softly distended, incisional tenderness and right-sided abdominal tenderness
Incisions with glue dressings
Preciado in place with clear yellow urine
Patient has a preciado catheter: Yes
[2025-08-25] MEDS: TRANEXAMIC ACID 110 MG IV ×2 (07:31→09:13)
[2025-08-25] MEDS: NOVOLOG FLEXPEN-LOW RESISTANCE SC (09:04)
[2025-08-25] MEDS: NOVOLOG FLEXPEN-LOW RESISTANCE 1 UNITS SC ×3 (09:09→18:04)
--- NOTE | 2025-08-25 10:34 | W.PN.HOSP.TC ---
Today's Communication/Plan
-
see A/P
Assessment / Plan
Assessment / Plan
HPI: 64 y/o male past medical history of diabetes, hypertension, hyperlipidemia; p/w intermittent right lower quadrant abdominal pain over the past month. Due to increased severity and becoming more persistent in nature, he presented to the ED.
He denies any nausea and vomiting. He reports some trouble with constipation but denies any diarrhea. He denies any fevers, sweats or chills.
CT AP:
There appears to be a mass involving the cecum and extending into the appendiceal orifice and proximal appendix. This measures up to 4.5 cm. There is associated dilation of the appendix measuring up to 1.8 cm which may be secondary to obstruction.
There is a small outpouching along the mid appendix for which a small contained perforation is possible. Findings are concerning for malignancy and may represent an appendiceal mucinous neoplasm or possible adenocarcinoma. Recommend colonoscopy for
further evaluation.
Moderate fat-containing right inguinal hernia.
Cholelithiasis.
A/P:
# Cecal Mass with associated appendiceal obstruction, ruled out perforation per GS
Fortunately, CT imaging reassuring without any evidence of lymphadenopathy or other concerning lesions along with a normal CEA.
s/p C scope 08/21, noted Large, villous, mucous-capped mass occupying the entire cecum, s/p biopsies. Also polyps throughout the colon, resected
Follow path report
s/p right hemicolectomy 08/24
s/p 1 g TXA per GS
Follow H&H
Maintain n.p.o. including meds per GS; okay for ice chips for comfort
Onc CS for cecal mass
# Coronary Artery Disease s/p Stent ~ 15 years ago
Continue aspirin
# Diabetes Mellitus, Type II
Hold Glimepiride, Metformin, Jardiance
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
cover with ISS
# Essential Hypertension
carvedilol and valsartan on hold
Hold HCTZ
IV Hydralazine and Lopressor PRN
# Hyperlipidemia
atorvastatin and ezetimibe on hold
DVT proph: SCD, hold Lovenox
Code Status: Full Code
Anticipated Discharge: > 48 hours
Subjective/Interval History
-
Date of Service: August 25, 2025
Objective Data
-
Labs:
Laboratory Results
08/25/25 08/25/25 08/25/25
05:30 12:00 18:00
WBC 12.7 H
Hgb 12.3 L Pending Pending
Hct 37.3 L Pending Pending
Plt Count 228
Sodium 137
Potassium 4.9
Chloride 104
Carbon Dioxide 24
BUN 13
Creatinine 0.9
Glucose 163 H
Calcium 8.1 L
Vital Signs:
Vital Signs
Temp Pulse Resp BP Pulse Ox
36.6 C 69 16 126/65 96
08/25/25 07:30 08/25/25 07:30 08/25/25 07:30 08/25/25 07:30 08/25/25 09:45
I&O
08/24/25 08/25/25 08/26/25
06:59 06:59 06:59
Intake Total 240 / 240 1510 / 1510 100 / 100
Output Total 125 / 125 750 / 750
Balance 240 / 240 1385 / 1385 -650 / -650
Review of Systems
-
History Source: Patient
All other systems: Reviewed and negative
Physical Exam
-
General: Well Developed, Well Nourished, No Apparent Distress, Comfortable, Conversant and Obese (BMI 34); Negative Respiratory Distress
HEENT: Normocephalic, Atraumatic, Nose Appears Normal and Ears Appear Normal; Negative Oxygen
Respiratory: Clear to Auscultation and Non Labored Respirations; Negative Accessory Resp Muscle Use
Cardiac: Regular Rhythm and S1/S2
GI: Soft, Nondistended and Other (surgery sites intact)
Skin: Warm and Dry
Neuro: Awake, Alert, Oriented and AO x 3
Psych: Calm and Intact Judgement/Insight
Data Reviewed
-
CT Scan: Report Reviewed by me and Discussed with Patient
Labs: Labs Reviewed by me
--- NOTE | 2025-08-25 11:02 | CM ---
Patient seen at bedside in [address] [place] [address]. Patient stated he was unsure of next steps/plan. Patient was independent of ADL's prior to procedure. CM will continue to follow for discharge planning needs.
Plan; home with family watch for any VN needs pending medical treatment plan
[2025-08-25 12:20] LABS: Hematocrit 34.6 % (39.0-52.0); Hemoglobin 11.5 g/dL (13.0-18.0)
[2025-08-25 13:09] LABS: Glucose - Point of Care 170 mg/dl (70-99)
[2025-08-25 13:09] LABS: Glucose - Point of Care 164 mg/dl (70-99)
[2025-08-25 13:09] LABS: Glucose - Point of Care 228 mg/dl (70-99)
[2025-08-25 13:09] LABS: Glucose - Point of Care 188 mg/dl (70-99)
--- NOTE | 2025-08-25 15:53 | CON.ONC ---
Consultation
-
Date Consultation Requested: 08/25/25
Date Consultation Performed: 08/25/25
Requesting Provider: Dr. Krysta Lebron
Performing Provider: Dr. Julio C Escoto
Reason for Consultation: cecal mass
Impression
Impression
cecal mass s/p R priti 08/24. nml CEA
post operative anemia, burgundy stool -Hgb 14->11.5, s/p tranexamic acid today, coags normal 08/23
Plan
Plan
will follow for surgical pathology
montor for bleeding, serial cbc
Patient History
History of Present Illness
65yo M who presented 08/19/2025 with RLQ abdominal pain. He reports worsening RLQ abdominal pain over the past month which became severe prompting further evaluation in the ER. His admission labs showed no significant abnormalities in his CBC or
CMP. HIs lipase was 727. His CT ab/pelvis showed a 4.5 x 3.9 cm cecal mass extending into the appendiceal orifice and proximal appendix. There is associated dilation of the appendix measuring up to 1.8 cm which may be secondary to obstruction. There
is a small outpouching along the mid appendix for which a small contained perforation is possible. His CT chest showed no evidence for metastatic disease. He underwent a colonoscopy 08/21/2025 that cecal mass biopsies showed adenomatous polyps in
eleno cecum, ascending colon, and hepatic flexure. His transverse colon polyp was hyperplastic. He subsequently underwent a laparoscopic assisted right hemicolectomy//lysis of adhesions for management of a large cecal mass obstructing the appendix
08/24/2025. Surgical pathology is pending. His pre-operative CEA was 1.52. Prior to admission, last colonoscopy was 2004.
Clinically, he reports some incisional pain. He notes burgundy colored stool output. He denies n/v.
Afebrile, no hypotnsion, room air
Past-Medical/Surgical History
PMH CAD with stent, DM2, HTN, HLD
PSH colon resection for diverticulitis, ventral hernia repair
Social non smoker, denies significant ETOH. Lives with family. employeed.
Family mother with colon cancer
Patient Medication
�Medication �Instructions �Recorded �Confirmed �Last Taken �Type
aspirin 81 mg tablet 81 mg PO DAILY Blood Clot 08/19/25 08/20/25 Unknown History
Prevention/Tx
atorvastatin 80 mg tablet (Lipitor) 80 mg PO HS High Cholesterol 08/19/25 08/20/25 Unknown History
carvedilol 6.25 mg tablet 6.25 mg PO BID Heart 08/19/25 08/20/25 Unknown History
Disease/Condition
empagliflozin 25 mg tablet 25 mg PO DAILY Diabetes 08/19/25 08/20/25 Unknown History
(Jardiance)
ezetimibe 10 mg tablet 10 mg PO DAILY High Cholesterol 08/19/25 08/20/25 Unknown History
glimepiride 4 mg tablet 4 mg PO BID Diabetes 08/19/25 08/20/25 Unknown History
insulin glargine 100 unit/mL 30 unit SC HS Diabetes 08/19/25 08/20/25 Unknown History
subcutaneous solution (Lantus
U-100 Insulin)
metformin 500 mg tablet 500 mg PO BID Diabetes 08/19/25 08/20/25 Unknown History
semaglutide 2 mg/dose (8 mg/3 mL) 2 mg SC GILLIS Diabetes 08/19/25 08/20/25 Unknown History
subcutaneous pen injector (Ozempic)
valsartan 160 1 tab PO DAILY Heart 08/19/25 08/20/25 Unknown History
mg-hydrochlorothiazide 12.5 mg Disease/Condition
tablet
calcium polycarbophil 625 mg 1,250 mg PO DAILY Constipation 08/20/25 08/20/25 Unknown History
tablet (FiberCon)
cholecalciferol (vitamin D3) 25 25 mcg PO DAILY Supplement 08/20/25 08/20/25 Unknown History
mcg (1,000 unit) tablet (Vitamin
D3)
Active Medications
Generic Name Dose Route Start Last Admin
Trade Name Freq PRN Reason Stop Dose Admin
Aspirin 81 mg 08/20/25 08:00 08/24/25 07:47
Aspirin 81 Mg (Enteric Coated) Tablet PO 09/17/25 07:59 81 mg
On Hold: 08/24/25 20:53 DAILY TERRANCE Administration
Atorvastatin Calcium 80 mg 08/20/25 22:00 08/23/25 21:13
Atorvastatin (Lipitor) 80 Mg Tablet PO 09/17/25 21:59 80 mg
On Hold: 08/24/25 20:53 HS TERRANCE Administration
Carvedilol 6.25 mg 08/20/25 08:00 08/24/25 22:17
Carvedilol 6.25 Mg Tablet PO 09/17/25 07:59 Not Given
On Hold: 08/24/25 20:53 BID TERRANCE
Dapagliflozin 10 mg 08/20/25 08:00 08/21/25 08:13
Dapagliflozin (Farxiga) 10 Mg Tablet PO 09/17/25 07:59 10 mg
On Hold: 08/21/25 10:45 DAILY TERRANCE Administration
Dextrose 12.5 grams 08/20/25 01:30
Dextrose 50% (0.5 Grams/Ml) 50 Ml Syringe IV 09/17/25 01:29
[id number] PRN
hypoglycemia
Protocol
Ezetimibe 10 mg 08/20/25 08:00 08/24/25 07:48
Ezetimibe (Zetia) 10 Mg Tablet PO 09/17/25 07:59 10 mg
On Hold: 08/24/25 20:54 DAILY TERRANCE Administration
Enoxaparin Sodium 40 mg 08/20/25 18:00 08/24/25 22:17
Enoxaparin Sodium 40 Mg/0.4 Ml Syringe SC 09/17/25 17:59 Not Given
On Hold: 08/24/25 20:53 QPM TERRANCE
Glucagon 1 mg 08/20/25 01:30
Glucagon 1 Mg Vial IM 09/17/25 01:29
PRN PRN
hypoglycemia
Protocol
Hydralazine HCl 5 mg 08/25/25 07:13
Hydralazine 20 Mg/Ml Vial IV 09/22/25 07:12
Q6HPRN PRN
SBP>150
Hydromorphone HCl 0.5 mg 08/24/25 20:55
Hydromorphone 0.5 Mg/0.5 Ml Syringe IV 09/07/25 20:54
Q2HPRN PRN
moderate pain
Hydromorphone HCl 1 mg 08/24/25 20:55
Hydromorphone 1 Mg/Ml Carpuject IV 09/07/25 20:54
Q2HPRN PRN
severe pain
Acetaminophen 1,000 mg in 100 mls @ 400 mls/hr 08/24/25 22:00 08/25/25 11:10
Ofirmev IV 08/26/25 21:59 100 mls
Q6H TERRANCE Administration
Protocol
Sodium Chloride 1,000 mls @ 120 mls/hr 08/24/25 21:00 08/25/25 11:17
Nss IV 1,000 mls
.Q8H20M TERRANCE Administration
Insulin Aspart 0 units 08/25/25 08:14 08/25/25 12:37
Insulin Aspart Low Resistance 300 Units/3 Ml Pen.Injctr SC 09/22/25 08:13 1 units
Q6 TERRANCE Administration
Protocol
Metoprolol Tartrate 5 mg 08/25/25 00:00 08/25/25 12:36
Metoprolol 5 Mg/5 Ml Vial IV 09/22/25 00:00 5 mg
Q6 TERRANCE Administration
Ondansetron HCl 4 mg 08/24/25 16:00
Ondansetron 4 Mg/2 Ml Vial IV
PACU-ONCEPRN PRN
nausea/vomiting
Ondansetron HCl 4 mg 08/24/25 20:55
Ondansetron 4 Mg/2 Ml Vial IV 09/21/25 20:54
Q6HPRN PRN
nausea/vomiting
Sodium Chloride 0 flush 08/20/25 02:00
Sodium Chloride 0.9% (Flush) Syringe IV 09/17/25 01:59
PER PROTOCOL TERRANCE
Sodium Chloride 0 flush 08/24/25 21:00
Sodium Chloride 0.9% (Flush) Syringe IV 09/21/25 20:59
PER PROTOCOL TERRANCE
Valsartan 160 mg 08/20/25 08:00 08/24/25 07:47
Valsartan 160 Mg Tablet PO 09/17/25 07:59 160 mg
On Hold: 08/24/25 20:54 DAILY TERRANCE Administration
Physical Exam
Labs
Lab Results
WBC 12.7 10^3/uL (4.8-10.8) H 08/25/25 05:30
RBC 4.13 10^6/uL (4.70-6.10) L 08/25/25 05:30
Hgb 11.5 g/dL (13.0-18.0) L 08/25/25 11:47
Hct 34.6 % (39.0-52.0) L 08/25/25 11:47
MCV 90.3 fL (80.0-94.0) 08/25/25 05:30
MCH 29.8 pg (27.0-31.0) 08/25/25 05:30
MCHC 33.0 g/dL (33.0-37.0) 08/25/25 05:30
RDW 12.9 % (11.5-14.5) 08/25/25 05:30
Plt Count 228 10^3/uL (130-400) 08/25/25 05:30
MPV 9.4 fL (7.4-10.4) 08/25/25 05:30
Abs Immat Gran (auto) 0.0 10^3/uL (0-0.05) 08/19/25 17:29
Absolute Neuts (auto) 5.3 10^3/uL (1.4-6.5) 08/19/25 17:
Absolute Lymphs (auto) 1.8 10^3/uL (1.2-3.4) 08/19/25 17:
Absolute Monos (auto) 0.8 10^3/uL (0.1-0.6) H 08/19/25 17:
Absolute Eos (auto) 0.2 10^3/uL (0-0.7) 08/19/25 17:
Absolute Basos (auto) 0.0 10^3/uL (0-0.2) 08/19/25:
Immature Gran % 0.1 % (0-0.5) 08/19/25 17:
Neutrophils % 65.6 % (42.2-75.2) 08/19/25:
Lymphocytes % 22.2 % (20.5-51.1) 08/19/25 17:
Monocytes % 9.7 % (1.7-9.3) H 08/19/25:
Eosinophils % 1.9 % (0-6) 08/19/25:
Basophils % 0.5 % (0-2) 08/19/25 17:
Creatinine 0.9 mg/dL (0.7-1.3) 08/25/25 05:30
Vital Signs
Vital Signs
Temp Pulse Resp BP Pulse Ox
98.7 F 74 16 140/74 96
08/25/25 15:15 08/25/25 15:15 08/25/25 15:15 08/25/25 15:15 08/25/25 15:15
--- NOTE | 2025-08-25 16:34 | W.PN.UPDATE ---
Update Note
Progress Note Update
Brief GI Note / Path Results:
Discussed pathology results at bedside with patient and patient's , Jatinder, this afternoon. Fortunately, he is recovering nicely from his recent surgery back on 08/23/2025 and reports feeling well with expected abdominal discomfort but otherwise
without any significant abdominal pain or other concerning symptoms. 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 Fortunately, this is benign (although precancerous) however
ultimately final path to be determined pending his surgical specimen from his right hemicolectomy there is still may be focal high-grade dysplasia or focal malignancy given the size of the lesion. He was found to have 3 additional subcentimeter
adenomatous polyps removed from the right colon along with an additional hyperplastic polyp removed from his transverse colon as well. He will need to be repeat colonoscopy in 1 year for surveillance and may follow-up with me as needed after his
hospitalization. Otherwise, agree with ongoing medical management and postoperative surgical care as planned.
Please recontact GI if any questions or concerns.
[2025-08-25 17:41] LABS: Ferritin 51.1 ng/ml (17.9-464.0)
[2025-08-25 18:04] LABS: Glucose - Point of Care 181 mg/dl (70-99)
[2025-08-25 18:32] LABS: Hematocrit 35.0 % (39.0-52.0); Hemoglobin 11.6 g/dL (13.0-18.0)
[2025-08-26] VITALS (8 sets, daily range): BP systolic 128–148; BP diastolic 63–77; PULSE 70; O2SAT 94
[2025-08-26 00:20] LABS: Glucose - Point of Care 161 mg/dl (70-99)
[2025-08-26] MEDS: NOVOLOG FLEXPEN-LOW RESISTANCE 1 UNITS SC ×3 (00:53→12:20)
[2025-08-26] MEDS: LOPRESSOR 5 MG IV ×5 (00:53→23:42)
--- NOTE | 2025-08-26 01:23 | W.PN.UPDATE ---
Update Note
Progress Note Update
Patient had 2 BMs with dark burgundy blood. Vital signs within baseline. Patient asymptomatic.
Hgb level check is 11.1, previously 11.6. Will check h&h q 6hrs.
No new recommendations by surgery control operator.
[2025-08-26 02:13] LABS: Hematocrit 33.3 % (39.0-52.0); Hemoglobin 11.1 g/dL (13.0-18.0)
[2025-08-26] MEDS: OFIRMEV 100 IV ×3 (04:07→17:18)
--- NOTE | 2025-08-26 04:50 | PTCARENOTE ---
Patient had 2 dark burgundy, bloody bowel movements this am. Pt was asymptomatic. BP 130/70 HR 72. CADDY MASTER notified. New orders given for labs to be drawn. Hgb 11.1 HCT 33.3; Dr. Monroy notified. No new recommendations given. Care ongoing.
[2025-08-26] MEDS: NSS 1000 IV (05:10)
[2025-08-26 06:23] LABS: Glucose - Point of Care 152 mg/dl (70-99)
--- NOTE | 2025-08-26 07:20 | W.PN.GS2 ---
Today's Communication / Plan
-
`
Assessment / Plan
-
Assessment: 65-year-old male POD #2 status post laparoscopic assisted right hemicolectomy/lysis of adhesions for management of a large cecal mass obstructing the appendix
AFVSS
Early postop anastomotic bleed suspected - stable, BMs overnight likely just residual old blood as H&H and VSS
acute blood loss anemia from expected operative blood loss and initial anastomotic bleeding - stable
Plan: ofirmev PRN/dilaudid PRN; No Toradol initially postop given anastomotic bleeding
clears for comfort but cautioned patient to go slow; would still hold PO meds
Renewed IV fluids
IV BP meds
OOBTC/ambulate/encourage IS use
okay to resume lovenox for VTEp this evening if follow up H&H stable this afternoon
Subjective Data
-
Date of Service: August 26, 2025
pt seen and examined
passed a few smaller maroon stools overnight - pt states much less bloody than intially the prior AM. otherwise asymptomatic a feels well
denies nausea, no vomiting
post op pain controlled
Objective Data
-
Intake and Output
08/25/25 08/26/25 08/27/25
06:59 06:59 06:59
Intake Total 1510 / 1510 2860 / 2860
Output Total 125 / 125 1250 / 1250
Balance 1385 / 1385 1610 / 1610
Intake:
Oral fluids 0 / 0
IV fluids (Total) 1310 / 1310 2460 / 2460
normosol 50 / 50
IV piggybacks 200 / 200 400 / 400
Output:
Urine, Preciado 125 / 125 750 / 750
Urine, Voided 500 / 500
Other:
Number of approximated SMALL 1
amounts of urine
Number of approximated MODERATE 2 1
amounts of urine
Vital Signs
Temp Pulse Resp BP Pulse Ox
98.2 F 70 16 140/71 92
08/26/25 03:07 08/26/25 06:23 08/26/25 03:07 08/26/25 06:23 08/26/25 03:07
Lab Results
08/26/25 19:30
Calcium 8.1 mg/dl (8.4-10.2) L 08/25/25 05:30
Magnesium 2.2 mg/dl (1.6-2.3) 08/25/25 05:30
Total Bilirubin 1.2 mg/dl (0.2-1.3) 08/19/25 17:29
AST 22 U/L (17-59) 08/19/25 17:29
ALT 38 U/L (0-50) 08/19/25 17:29
Alkaline Phosphatase 97 U/L (38-126) 08/19/25 17:29
Total Protein 7.6 g/dl (6.3-8.2) 08/19/25 17:29
Albumin 4.8 g/dl (3.5-5.0) 08/19/25 17:29
Physical Exam
-
NAD AAOx3
ABD: softly distended, minimal incisional tenderness
incisions with glue dressings
Patient has a preciado catheter: No
[2025-08-26 09:15] LABS: Hematocrit 31.2 % (39.0-52.0); Hemoglobin 10.3 g/dL (13.0-18.0); Mean Corp Hgb Conc. 33.0 g/dL (33.0-37.0); Mean Corpuscular Volume 91.5 fL (80.0-94.0); Platelet Count 200 10^3/uL (130-400); Red Cell Dist. Width 13.5 % (11.5-14.5)
[2025-08-26 10:38] LABS: Blood Urea Nitrogen 14 mg/dl (9-20); Calcium 8.0 mg/dl (8.4-10.2); Carbon Dioxide 25 mmol/L (22-30); Chloride 107 mmol/L (98-107); Estimated Creatinine Clearance > 125 ml/min; Glucose 154 mg/dl (70-99); Potassium 4.6 mmol/L (3.5-5.1); Sodium 137 mmol/L (135-145); eGFR > 60.00
[2025-08-26 12:20] LABS: Glucose - Point of Care 192 mg/dl (70-99)
--- NOTE | 2025-08-26 12:24 | W.PN.HOSP.TC ---
Today's Communication/Plan
-
see A/P
Assessment / Plan
Assessment / Plan
HPI: 64 y/o male past medical history of diabetes, hypertension, hyperlipidemia; p/w intermittent right lower quadrant abdominal pain over the past month. Due to increased severity and becoming more persistent in nature, he presented to the ED.
He denies any nausea and vomiting. He reports some trouble with constipation but denies any diarrhea. He denies any fevers, sweats or chills.
CT AP:
There appears to be a mass involving the cecum and extending into the appendiceal orifice and proximal appendix. This measures up to 4.5 cm. There is associated dilation of the appendix measuring up to 1.8 cm which may be secondary to obstruction.
There is a small outpouching along the mid appendix for which a small contained perforation is possible. Findings are concerning for malignancy and may represent an appendiceal mucinous neoplasm or possible adenocarcinoma. Recommend colonoscopy for
further evaluation.
Moderate fat-containing right inguinal hernia.
Cholelithiasis.
A/P:
# Cecal Mass with associated appendiceal obstruction, ruled out perforation per GS
Fortunately, CT imaging reassuring without any evidence of lymphadenopathy or other concerning lesions along with a normal CEA.
s/p C scope 08/21, noted Large, villous, mucous-capped mass occupying the entire cecum, s/p biopsies. Also polyps throughout the colon, resected
path report from C scope showed adenomatous polyp
s/p right hemicolectomy 08/24
Follow path report from right hemicolectomy
s/p 1 g TXA per GS
Follow H&H post op
Started clear liquid diet per GS, ADAT per GS
Onc consulted
# Coronary Artery Disease s/p Stent ~ 15 years ago
Continue aspirin
# Diabetes Mellitus, Type II
Hold Glimepiride, Metformin, Jardiance
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
cover with ISS
# Essential Hypertension
carvedilol and valsartan on hold
Hold HCTZ
IV Hydralazine and Lopressor PRN
# Hyperlipidemia
atorvastatin and ezetimibe on hold
DVT proph: restarted Lovenox SQ for DVT ppx
Code Status: Full Code
DW RN
Anticipated Discharge: > 48 hours
Subjective/Interval History
-
Date of Service: August 26, 2025
Objective Data
-
Labs:
Laboratory Results
08/26/25 08/26/25 08/26/25
01:54 07:30 08:53
WBC 9.2
Hgb 11.1 L Cancelled 10.3 L
Hct 33.3 L Cancelled 31.2 L
Plt Count 200
Sodium 137
Potassium 4.6
Chloride 107
Carbon Dioxide 25
BUN 14
Creatinine 0.7
Glucose 154 H
Calcium 8.0 L
08/26/25 08/26/25 08/26/25
13:30 14:00 19:30
WBC
Hgb Cancelled Pending Cancelled
Hct Cancelled Pending Cancelled
Plt Count
Sodium
Potassium
Chloride
Carbon Dioxide
BUN
Creatinine
Glucose
Calcium
Vital Signs:
Vital Signs
Temp Pulse Resp BP Pulse Ox
36.6 C 68 16 134/69 94
08/26/25 11:10 08/26/25 11:10 08/26/25 11:10 08/26/25 11:10 08/26/25 11:10
I&O
08/25/25 08/26/25 08/27/25
06:59 06:59 06:59
Intake Total 1510 / 1510 2860 / 2860 600 / 600
Output Total 125 / 125 1250 / 1250
Balance 1385 / 1385 1610 / 1610 600 / 600
Review of Systems
-
History Source: Patient
All other systems: Reviewed and negative
Physical Exam
-
General: Well Developed, Well Nourished, No Apparent Distress, Comfortable, Conversant and Obese (BMI 34); Negative Respiratory Distress
HEENT: Normocephalic, Atraumatic, Nose Appears Normal and Ears Appear Normal; Negative Oxygen
Respiratory: Clear to Auscultation and Non Labored Respirations; Negative Accessory Resp Muscle Use
Cardiac: Regular Rhythm and S1/S2
GI: Soft, Nondistended and Other (surgery sites intact)
Skin: Warm and Dry
Neuro: Awake, Alert, Oriented and AO x 3
Psych: Calm and Intact Judgement/Insight
Data Reviewed
-
CT Scan: Report Reviewed by me and Discussed with Patient
Labs: Labs Reviewed by me
--- NOTE | 2025-08-26 14:01 | PTOTSP ---
The patient is independent with ambulation and is ambulating independently in the hallways. Patient denied the need for PT at this time and is agreeable to PT signing off and continuing walking on his own. Discussed with RN.
[2025-08-26 14:10] LABS: Hematocrit 33.7 % (39.0-52.0); Hemoglobin 11.1 g/dL (13.0-18.0)
--- NOTE | 2025-08-26 15:18 | CM ---
Patient independent of PT per assessment today. Plan continues to be home with no needs anticipated. Patient currently on clear liquid per chart review. CM will continue to follow for discharge planning needs.
Plan; home with no needs anticipated at this time.
[2025-08-26 17:02] LABS: Glucose - Point of Care 133 mg/dl (70-99)
[2025-08-26] MEDS: NOVOLOG FLEXPEN-LOW RESISTANCE SC (17:18)
[2025-08-26] MEDS: LOVENOX 40 MG SC (17:23)
[2025-08-26 21:58] LABS: Glucose - Point of Care 159 mg/dl (70-99)
[2025-08-26] MEDS: LANTUS 0.05 UNITS SC (21:58)
[2025-08-27 03:10] VITALS: BP 127/72
[2025-08-27] MEDS: LOPRESSOR 5 MG IV ×3 (05:28→17:53)
[2025-08-27] MEDS: FLUSH (NSS) 1 FLUSH IV (05:28)
[2025-08-27 06:23] LABS: Hematocrit 30.5 % (39.0-52.0); Hemoglobin 10.2 g/dL (13.0-18.0); Mean Corp Hgb Conc. 33.4 g/dL (33.0-37.0); Mean Corpuscular Volume 91.0 fL (80.0-94.0); Platelet Count 203 10^3/uL (130-400); Red Cell Dist. Width 13.4 % (11.5-14.5)
[2025-08-27 06:47] LABS: Blood Urea Nitrogen 8 mg/dl (9-20); Calcium 8.3 mg/dl (8.4-10.2); Carbon Dioxide 25 mmol/L (22-30); Chloride 106 mmol/L (98-107); Estimated Creatinine Clearance > 125 ml/min; Glucose 137 mg/dl (70-99); Potassium 4.3 mmol/L (3.5-5.1); Sodium 135 mmol/L (135-145); eGFR > 60.00
[2025-08-27 07:35] VITALS: BP 147/74
[2025-08-27 08:27] LABS: Glucose - Point of Care 148 mg/dl (70-99)
[2025-08-27] MEDS: NOVOLOG FLEXPEN-LOW RESISTANCE SC (08:28)
--- NOTE | 2025-08-27 10:38 | W.PN.HOSP.TC ---
Today's Communication/Plan
-
see A/P
Assessment / Plan
Assessment / Plan
HPI: 64 y/o male past medical history of diabetes, hypertension, hyperlipidemia; p/w intermittent right lower quadrant abdominal pain over the past month. Due to increased severity and becoming more persistent in nature, he presented to the ED.
He denies any nausea and vomiting. He reports some trouble with constipation but denies any diarrhea. He denies any fevers, sweats or chills.
CT AP:
There appears to be a mass involving the cecum and extending into the appendiceal orifice and proximal appendix. This measures up to 4.5 cm. There is associated dilation of the appendix measuring up to 1.8 cm which may be secondary to obstruction.
There is a small outpouching along the mid appendix for which a small contained perforation is possible. Findings are concerning for malignancy and may represent an appendiceal mucinous neoplasm or possible adenocarcinoma. Recommend colonoscopy for
further evaluation.
Moderate fat-containing right inguinal hernia.
Cholelithiasis.
A/P:
# Cecal Mass with associated appendiceal obstruction, ruled out perforation per GS
Fortunately, CT imaging reassuring without any evidence of lymphadenopathy or other concerning lesions along with a normal CEA.
s/p C scope 08/21, noted Large, villous, mucous-capped mass occupying the entire cecum, s/p biopsies. Also polyps throughout the colon, resected
path report from C scope showed adenomatous polyp
s/p right hemicolectomy 08/24
Follow path report from right hemicolectomy
s/p 1 g TXA per GS
H&H stable post op
Started clear liquid diet per GS, ADAT per GS
Onc consulted
# Coronary Artery Disease s/p Stent ~ 15 years ago
Continue aspirin
# Diabetes Mellitus, Type II
Hold Glimepiride, Metformin, Jardiance
resumed Lantus at 5 units HS (UPPER SHAPER on Lantus 30 units HS)
cover with ISS
# Essential Hypertension
carvedilol and valsartan on hold
Hold HCTZ
IV Hydralazine and Lopressor PRN
# Hyperlipidemia
atorvastatin and ezetimibe on hold
DVT proph: restarted Lovenox SQ for DVT ppx
Code Status: Full Code
DW RN
DW family (cousin) at bedside
Anticipated Discharge: 24 - 48 hours
Subjective/Interval History
-
Date of Service: August 27, 2025
Objective Data
-
Labs:
Laboratory Results
08/27/25
05:15
WBC 7.1
Hgb 10.2 L
Hct 30.5 L
Plt Count 203
Sodium 135
Potassium 4.3
Chloride 106
Carbon Dioxide 25
BUN 8 L
Creatinine 0.7
Glucose 137 H
Calcium 8.3 L
Vital Signs:
Vital Signs
Temp Pulse Resp BP Pulse Ox
36.6 C 65 16 147/74 95
08/27/25 07:35 08/27/25 07:35 08/27/25 07:35 08/27/25 07:35 08/27/25 07:35
I&O
08/26/25 08/27/25 08/28/25
06:59 06:59 06:59
Intake Total 2860 / 2860 1200 / 1200
Output Total 1250 / 1250
Balance 1610 / 1610 1200 / 1200
Review of Systems
-
History Source: Patient
All other systems: Reviewed and negative
Physical Exam
-
General: Well Developed, Well Nourished, No Apparent Distress, Comfortable, Conversant and Obese (BMI 34); Negative Respiratory Distress
HEENT: Normocephalic, Atraumatic, Nose Appears Normal and Ears Appear Normal; Negative Oxygen
Respiratory: Clear to Auscultation and Non Labored Respirations; Negative Accessory Resp Muscle Use
Cardiac: Regular Rhythm and S1/S2
GI: Soft, Nondistended and Other (surgery sites intact)
Skin: Warm and Dry
Neuro: Awake, Alert, Oriented and AO x 3
Psych: Calm and Intact Judgement/Insight
Data Reviewed
-
CT Scan: Report Reviewed by me and Discussed with Patient
Labs: Labs Reviewed by me
[2025-08-27 11:44] VITALS: BP 135/67
--- NOTE | 2025-08-27 11:57 | W.PN.GS2 ---
Addendum entered and electronically signed by Gabriel Solis MD 08/27/25 12:01:
Correction: IVF DC;ed
Original Note:
Today's Communication / Plan
-
Adv to fulls
Assessment / Plan
-
Assessment: 65-year-old male POD #3 status post laparoscopic assisted right hemicolectomy/lysis of adhesions for management of a large cecal mass obstructing the appendix
AFVSS
Early postop anastomotic bleed suspected - stable, BMs overnight likely just residual old blood as H&H and VSS
acute blood loss anemia from expected operative blood loss and initial anastomotic bleeding - slow drift continues, plts OK
Plan: ofirmev PRN/dilaudid PRN; No Toradol initially postop given anastomotic bleeding
Adv to fulls, OK for PO meds
Renewed IV fluids at reduced rate
BP meds per Hospitalist
OOBTC/ambulate/encourage IS use
Cont lovenox DVT ppx
Trend CBC
Subjective Data
-
Date of Service: August 27, 2025
AFVSS, ambulating, passing flatus, voiding, no further bloody BMs overnight
Objective Data
-
Intake and Output
08/26/25 08/27/25 08/28/25
06:59 06:59 06:59
Intake Total 2860 / 2860 1200 / 1200
Output Total 1250 / 1250
Balance 1610 / 1610 1200 / 1200
Intake:
Oral fluids 1200 / 1200
IV fluids (Total) 2460 / 2460
IV piggybacks 400 / 400
Output:
Urine, Preciado 750 / 750
Urine, Voided 500 / 500
Other:
How many times incontinent 2
MODERATE amount urine
Number of approximated SMALL 1
amounts of urine
Number of approximated MODERATE 1 8
amounts of urine
Vital Signs
Temp Pulse Resp BP Pulse Ox
97.8 F 67 16 135/67 96
08/27/25 11:44 08/27/25 11:44 08/27/25 11:44 08/27/25 11:44 08/27/25 11:44
Lab Results
08/27/25 05:15
08/27/25 05:15
Calcium 8.3 mg/dl (8.4-10.2) L 08/27/25 05:15
Magnesium 2.2 mg/dl (1.6-2.3) 08/25/25 05:30
Total Bilirubin 1.2 mg/dl (0.2-1.3) 08/19/25 17:29
AST 22 U/L (17-59) 08/19/25 17:29
ALT 38 U/L (0-50) 08/19/25 17:29
Alkaline Phosphatase 97 U/L (38-126) 08/19/25 17:29
Total Protein 7.6 g/dl (6.3-8.2) 08/19/25 17:29
Albumin 4.8 g/dl (3.5-5.0) 08/19/25 17:29
Physical Exam
-
Gen: NAD
Abd: soft, approp ttp, incisons cdi
Patient has a preciado catheter: No
Patient has a central line: No
[2025-08-27 12:20] LABS: Glucose - Point of Care 170 mg/dl (70-99)
[2025-08-27] MEDS: NOVOLOG FLEXPEN-LOW RESISTANCE 1 UNITS SC ×2 (12:27→17:48)
[2025-08-27 16:00] VITALS: BP 137/66
[2025-08-27 17:25] LABS: Glucose - Point of Care 183 mg/dl (70-99)
[2025-08-27] MEDS: LOVENOX 40 MG SC (17:53)
[2025-08-27 19:09] VITALS: BP 136/71
[2025-08-27 21:35] LABS: Glucose - Point of Care 216 mg/dl (70-99)
[2025-08-27] MEDS: LANTUS 0.05 UNITS SC (22:24)
[2025-08-27 23:15] VITALS: BP 148/76
[2025-08-28] MEDS: LOPRESSOR 5 MG IV ×2 (00:48→06:13)
[2025-08-28 03:02] VITALS: BP 120/76
[2025-08-28 07:10] VITALS: BP 127/75
[2025-08-28 07:17] LABS: Glucose - Point of Care 152 mg/dl (70-99)
[2025-08-28 07:35] LABS: Hematocrit 30.3 % (39.0-52.0); Hemoglobin 10.3 g/dL (13.0-18.0); Mean Corp Hgb Conc. 34.0 g/dL (33.0-37.0); Mean Corpuscular Volume 91.5 fL (80.0-94.0); Platelet Count 226 10^3/uL (130-400); Red Cell Dist. Width 13.1 % (11.5-14.5)
[2025-08-28 07:55] LABS: Blood Urea Nitrogen 6 mg/dl (9-20); Calcium 8.6 mg/dl (8.4-10.2); Carbon Dioxide 27 mmol/L (22-30); Chloride 104 mmol/L (98-107); Estimated Creatinine Clearance 111 ml/min; Glucose 148 mg/dl (70-99); Potassium 4.4 mmol/L (3.5-5.1); Sodium 137 mmol/L (135-145); eGFR > 60.00
[2025-08-28] MEDS: NOVOLOG FLEXPEN-LOW RESISTANCE 1 UNITS SC (08:08)
--- NOTE | 2025-08-28 09:21 | CM ---
caravan park and camping ground manager reviewed patient's chart and met with patient and patient's diet to advance, patient is ambulating hallway per notes, plan is to home with spouse when stable.
Plan; Home with spouse when stable.
--- NOTE | 2025-08-28 11:02 | W.PN.HOSP.TC ---
Today's Communication/Plan
-
see AP
Assessment / Plan
Assessment / Plan
HPI: 64 y/o male past medical history of diabetes, hypertension, hyperlipidemia; p/w intermittent right lower quadrant abdominal pain over the past month. Due to increased severity and becoming more persistent in nature, he presented to the ED.
He denies any nausea and vomiting. He reports some trouble with constipation but denies any diarrhea. He denies any fevers, sweats or chills.
CT AP:
There appears to be a mass involving the cecum and extending into the appendiceal orifice and proximal appendix. This measures up to 4.5 cm. There is associated dilation of the appendix measuring up to 1.8 cm which may be secondary to obstruction.
There is a small outpouching along the mid appendix for which a small contained perforation is possible. Findings are concerning for malignancy and may represent an appendiceal mucinous neoplasm or possible adenocarcinoma. Recommend colonoscopy for
further evaluation.
Moderate fat-containing right inguinal hernia.
Cholelithiasis.
A/P:
# Cecal Mass with associated appendiceal obstruction, ruled out perforation per GS
Fortunately, CT imaging reassuring without any evidence of lymphadenopathy or other concerning lesions along with a normal CEA.
s/p C scope 08/21, noted Large, villous, mucous-capped mass occupying the entire cecum, s/p biopsies. Also polyps throughout the colon, resected
path report from C scope showed adenomatous polyp
s/p right hemicolectomy 08/24
Follow path report from right hemicolectomy
s/p 1 g TXA per GS
H&H stable post op
diet advanced to full liquid per GS, ADAT per GS
resume PO meds
Onc consulted
# Coronary Artery Disease s/p Stent ~ 15 years ago
Continue aspirin
# Diabetes Mellitus, Type II
Hold Glimepiride, Metformin, Jardiance
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
cover with ISS
# Essential Hypertension
carvedilol and valsartan on hold, BP has been stable off meds,
Resume Coreg at low dose 3.125 mg BID following discharge
Cont to hold valsartan
Hold HCTZ
# Hyperlipidemia
atorvastatin and ezetimibe resumed
DVT proph: restarted Lovenox SQ for DVT ppx
Code Status: Full Code
DW RN
Anticipated Discharge: Within 24 hours
Subjective/Interval History
-
Date of Service: August 28, 2025
Objective Data
-
Labs:
Laboratory Results
08/28/25 08/28/25
06:34 06:35
WBC 6.1
Hgb 10.3 L
Hct 30.3 L
Plt Count 226
Sodium 137
Potassium 4.4
Chloride 104
Carbon Dioxide 27
BUN 6 L
Creatinine 0.8
Glucose 148 H
Calcium 8.6
Vital Signs:
Vital Signs
Temp Pulse Resp BP Pulse Ox
36.7 C 68 18 127/75 95
08/28/25 07:10 08/28/25 07:10 08/28/25 07:10 08/28/25 07:10 08/28/25 07:10
I&O
08/27/25 08/28/25 08/29/25
06:59 06:59 06:59
Intake Total 1200 / 1200 1100 / 1100 480 / 480
Balance 1200 / 1200 1100 / 1100 480 / 480
Review of Systems
-
History Source: Patient
All other systems: Reviewed and negative
Physical Exam
-
General: Well Developed, Well Nourished, No Apparent Distress, Comfortable, Conversant and Obese (BMI 34); Negative Respiratory Distress
HEENT: Normocephalic, Atraumatic, Nose Appears Normal and Ears Appear Normal; Negative Oxygen
Respiratory: Clear to Auscultation and Non Labored Respirations; Negative Accessory Resp Muscle Use
Cardiac: Regular Rhythm and S1/S2
GI: Soft, Nontender, Nondistended and Other (surgery sites intact)
Skin: Warm and Dry
Neuro: Awake, Alert, Oriented, AO x 3 and Nonfocal/Grossly Intact
Psych: Calm and Intact Judgement/Insight
Data Reviewed
-
CT Scan: Report Reviewed by me and Discussed with Patient
Labs: Labs Reviewed by me
[2025-08-28 11:18] VITALS: BP 141/76
[2025-08-28 11:37] LABS: Glucose - Point of Care 227 mg/dl (70-99)
[2025-08-28] MEDS: COREG 3.125 MG PO (11:57)
[2025-08-28] MEDS: NOVOLOG FLEXPEN-LOW RESISTANCE 2 UNITS SC (11:58)
--- NOTE | 2025-08-28 13:09 | W.PN.GS2 ---
Today's Communication / Plan
-
advance diet
dipso planning
Assessment / Plan
-
Assessment: 65-year-old male POD #4 status post laparoscopic assisted right hemicolectomy/lysis of adhesions for management of a large cecal mass obstructing the appendix
AFVSS
Early postop anastomotic bleed suspected - stable, BMs yesterday likely just residual old blood as H&H and VSS
Plan: Tylenol/Tramadol PRN
Adv to [facility] for PO meds
Diabetic management as per Hospitalist
OOBTC/ambulate/encourage IS use
Cont lovenox DVT ppx
Tentative d/c later today vs tomorrow pending PO tolerance and stools
Subjective Data
-
Date of Service: August 28, 2025
Pt seen and examined at bedside. Denies n/v. Some soreness with movement but not much pain. Passed 5 very small tarry/black stools yesterday, none today. Passing flatus. Ambulating in halls.
Objective Data
-
Intake and Output
08/27/25 08/28/25 08/29/25
06:59 06:59 06:59
Intake Total 1200 / 1200 1100 / 1100 480 / 480
Balance 1200 / 1200 1100 / 1100 480 / 480
Intake:
Oral fluids 1200 / 1200 1100 / 1100 480 / 480
Other:
How many times incontinent 2
MODERATE amount urine
Number of approximated MODERATE 8 1 2
amounts of urine
Vital Signs
Temp Pulse Resp BP Pulse Ox
97.7 F 65 16 141/76 96
08/28/25 11:18 08/28/25 11:18 08/28/25 11:18 08/28/25 11:18 08/28/25 11:18
Lab Results
08/28/25 06:35
08/28/25 06:34
Calcium 8.6 mg/dl (8.4-10.2) 08/28/25 06:34
Magnesium 2.2 mg/dl (1.6-2.3) 08/25/25 05:30
Total Bilirubin 1.2 mg/dl (0.2-1.3) 08/19/25 17:29
AST 22 U/L (17-59) 08/19/25 17:29
ALT 38 U/L (0-50) 08/19/25 17:29
Alkaline Phosphatase 97 U/L (38-126) 08/19/25 17:29
Total Protein 7.6 g/dl (6.3-8.2) 08/19/25 17:29
Albumin 4.8 g/dl (3.5-5.0) 08/19/25 17:29
Physical Exam
-
Gen: NAD
Abd: soft, approp ttp, incisons cdi, ecchymosis to lower abdomen
Patient has a preciado catheter: No
Patient has a central line: No
--- NOTE | 2025-08-28 14:51 | W.DCSUMMARY ---
Discharge Summary
Discharge Data
Date of Admission: 08/19/25
Date of Discharge: 08/28/25
Total time spent discharging patient (in min): 40
-
Pending Results: Yes
Additional Pending Results:
pathology report from the right hemicolectomy.
Hospital Course
Principal Diagnosis:
Cecal Mass with associated appendiceal obstruction
Chronic Diagnoses:�
IDDM. 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
Essential Hypertension. Stopped valsartan/HCTZ. Continue decreased coreg at 3.125 mg BID
Hyperlipidemia, continue atorvastatin and ezetimibe.
Coronary Artery Disease s/p Stent ~ 15 years ago, continue aspirin
Consultations:�
General surgery
Gastroenterology
Procedures:�
s/p C scope 08/21, noted Large, villous, mucous-capped mass occupying the entire cecum, s/p biopsies. Also polyps throughout the colon, resected
s/p right hemicolectomy 08/24
Clinical course:�
This is a 65 y/o male past medical history as stated above, who presented with intermittent right lower quadrant abdominal pain.
His admission CT AP showed:
A mass involving the cecum and extending into the appendiceal orifice and proximal appendix. This measures up to 4.5 cm. There is associated dilation of the appendix measuring up to 1.8 cm which may be secondary to obstruction. There is a small
outpouching along the mid appendix for which a small contained perforation is possible. Findings are concerning for malignancy and may represent an appendiceal mucinous neoplasm or possible adenocarcinoma.
Problem 1:
Cecal mass with associated appendiceal obstruction, ruled out perforation per GS.
He underwent C scope on 08/21/2025, which confirmed the large, villous, mucous-capped mass occupying the entire cecum. Biopsy was taken which showed adenomatous polyp.
His colonoscopy also showed polyps throughout the colon, which were resected.
The patient subsequently underwent right hemicolectomy on 08/24/25.
He has been informed to follow-up the pathology report outpatient from the right hemicolectomy.
His H&H has been stable post op, and his diet was advanced to low residue which he tolerated well.
As for his prior to admission meds, his Coreg was reduced from 6.25 to 3.125 twice daily, his prior to admission valsartan/HCTZ were stopped, and his Lantus was decreased from 30 to 15 units at bedtime.
As for the rest of his medical problems, they were stable during his hospital stay.
Discharge Plan
-
Patient Disposition: Home (Routine Discharge)
Discharge Diagnosis/Procedures: Cecal Mass with associated appendiceal obstruction;
s/p C scope 08/21,
s/p right hemicolectomy 08/24;
Insulin dependent diabetes
Condition: Good
Diet: As tolerated, Low Fat, Low Cholesterol and Diabetic, Carb Controlled
Activity: No strenuous activity
Additional Activity: Do not lift over 20lbs for the next 4 weeks
[address] Restrictions: As prior to admission
Bathing Restrictions: OK to Shower
Blood Work: CBC in 1 week with result to your PCP
Wound Care: Glue will flake off incisions over the next 2 weeks. Ok to shower but do not soak in tubs or pools.
Activity Restrictions/Additional Instructions:
Pathology report will be sent to your surgeon for review
Call your surgeon if you develop fever >100.5, nausea with vomiting or worsening pain
Referrals:
Sinai Das NP [Family Provider, Family Practice] - in less than 1 week
Tavo Chao MD [Active, Surgical] - in two to three weeks
Additional Discharge Medication Instructions: Coreg decreased from 6.25 to 3.125 mg twice daily- can increase dose back to 6.25 if needed
Stop Valsartan-HCTZ
Decrease Lantus from 30 to 15 units at night.
Take tylenol as needed for pain control
Prescriptions:
New
carvedilol [Coreg] 3.125 mg tablet
3.125 mg PO Q12H Qty: 60 0RF
tramadol 50 mg tablet
25 - 50 mg PO Q6HPRN PRN (Reason: severe pain/breakthrough pain) Qty: 10 0RF
(DME) CBC without diff
See Rx Instructions .Route .MEDSUPPLY Qty: 1 0RF
Rx Instructions:
08/31 to 09/11/2025, result to PCP
# anemia
Continued
metformin 500 mg Tablet
500 mg PO BID
atorvastatin [Lipitor] 80 mg Tablet
80 mg PO HS
glimepiride 4 mg Tablet
4 mg PO BID
aspirin 81 mg Tablet
81 mg PO DAILY
ezetimibe 10 mg Tablet
10 mg PO DAILY
Jardiance 25 mg Tablet
25 mg PO DAILY
Ozempic 2 mg/dose (8 mg/3 mL) Pen Injector
2 mg SC GILLIS
calcium polycarbophil [FiberCon] 625 mg Tablet
1,250 mg PO DAILY
cholecalciferol (vitamin D3) [Vitamin D3] 25 mcg (1,000 unit) Tablet
25 mcg PO DAILY
Changed
insulin glargine [Lantus U-100 Insulin] 100 unit/mL Solution
15 unit SC HS Qty: 0 0RF
Discontinued
carvedilol 6.25 mg Tablet
6.25 mg PO BID
valsartan-hydrochlorothiazide 160-12.5 mg Tablet
1 tab PO DAILY
Discharge Orders:
Discharge Patient (As Directed); Ordered 08/28/25
Ordered By: Krysta Lebron
Discharge Date and Time
Discharge Date/Time: 08/28/25 15:05
Print Language: SWEDISH
== END 2025-08-28 15:05 | disposition home or self-care (01) | DRG 330 ==
LOC: 2 SOUTH 23:31
PROVIDERS: Emergency Medicine; Hospitalist; Nurse Practitioner Family; Physician Assistant Medical; Registered Nurse; Student in an Organized Health Care Education/Training Program; ADMITTING PHYSICIAN Hospitalist; ATTENDING PHYSICIAN Internal Medicine; CONSULT PHYSICIAN Internal Medicine Hematology & Oncology; CONSULT PHYSICIAN Specialist; CONSULT PHYSICIAN Surgery; EMERGENCY PHYSICIAN Emergency Medicine; FAMILY PHYSICIAN Nurse Practitioner Family
PROC: 0DBK8ZZ Excision of Ascending Colon, Via Natural or Artificial Opening Endoscopic (ICD-10-PCS; 2025-08-21)
PROC: 0DBL8ZZ Excision of Transverse Colon, Via Natural or Artificial Opening Endoscopic (ICD-10-PCS; 2025-08-21)
PROC: 0DBH8ZX Excision of Cecum, Via Natural or Artificial Opening Endoscopic, Diagnostic (ICD-10-PCS; 2025-08-21)
PROC: 0DTF0ZZ Resection of Right Large Intestine, Open Approach (ICD-10-PCS; 2025-08-24)
DX: D12.0 Benign neoplasm of cecum (principal); D62 Acute posthemorrhagic anemia; E11.9 Type 2 diabetes mellitus without complications; Z79.4 Long term (current) use of insulin; I10 Essential (primary) hypertension; E78.00 Pure hypercholesterolemia, unspecified; I25.10 Atherosclerotic heart disease of native coronary artery without angina pectoris; Z95.5 Presence of coronary angioplasty implant and graft; Z79.82 Long term (current) use of aspirin; Z79.899 Other long term (current) drug therapy; Z79.84 Long term (current) use of oral hypoglycemic drugs; Z79.85 Long-term (current) use of injectable non-insulin antidiabetic drugs; Z80.0 Family history of malignant neoplasm of digestive organs; E86.0 Dehydration; K66.0 Peritoneal adhesions (postprocedural) (postinfection)
CPT/HCPCS: 71260; 74177; 80048; 80053; 82378; 82728; 82962; 83036; 83690; 83735; 85014; 85018; 85025; 85027; 85610; 85730; 86850; 86900; 86901; 88305; 88309; 88342; 93005; 97162; 97166; J1335; Q9967